=== PATIENT | female | born 1995 | race Caucasian/White ===

== ENCOUNTER 2019-03-07 22:18 | Emergency (ER) | payer MEDICAID, SELFPAY ==
[2019-03-07 22:15] VITALS: BP 116/77; PULSE 94; RESP 18; TEMP 36.8; O2SAT 99; BMI 27.1
--- NOTE | 2019-03-07 22:19 | ED_ITS ---
Entered by oRhini Flores, acting as scribe for Jaelyn Berger MD HPI - Abdominal Pain General: Chief Complaint: Abdominal Pain Stated Complaint: labor Source: patient and EMS Mode of arrival: EMS Limitations: no limitations History of Present Illness: HPI narrative: 24 y/o female presents to the ED with complaint of abd pain and cramping. Pt states she is 19 weeks . She was seen in [facility] earlier today and was sent here. MD elicited complaint: abdominal pain Onset (ago): hour(s) Quality: cramping Associated Symptoms: Reports nausea; Denies chills and fever(s) Related Data: Patient : Yes (19 weeks) Review of Systems Const: Denies: fever or chills Eyes: Denies: change in vision ENMT: Denies: throat pain or mouth pain Card: Denies: chest pain Resp: Denies: shortness of breath GI: Reports: abdominal pain and nausea : Denies: difficulty urinating Musc: Denies: back pain or joint pain Skin/Breast: Denies: rash Neuro: Denies: headache or behavioral changes Psych: Denies: depression Endo: Denies: excessive urination Rowdy/Lymph: Denies: easy bruising All/Imm: Denies: hives Physical Exam Const: COMMON NORMALS: no apparent distress, oriented x3 and healthy appearing HENMT: COMMON NORMALS: normocephalic and external nose normal HEAD & SCALP: normocephalic NOSE: external nose normal Eye: COMMON NORMALS: PERRL PUPIL: Yes PERRL Neck/C-Spine: COMMON NORMALS: full ROM and no lymphadenopathy Chest: COMMONS NORMALS: inspection of chest normal Resp: COMMON NORMALS: normal respiratory effort, no use of accessory muscles and clear to auscultation bilaterally AUSCULTATION: clear to auscultation bilaterally Cardio: COMMON NORMALS: regular rate and regular rhythm RATE: regular rate RHYTHM: regular rhythm GI: COMMON NORMALS: normal to inspection, nondistended, normoactive bowel sounds, soft to palpation, non-tender and no masses PALPATION: Yes soft Back/Pelvis: THORACIC SPINE/UPPER BACK: Yes normal to inspection Extremity: COMMON NORMALS: normal to inspection, full ROM and normal capillary refill Neuro: COMMON NORMALS: oriented x3 Psych: COMMON NORMALS: mental status grossly normal and cooperative Skin: COMMON NORMALS: no rashes or lesions noted GENERAL SKIN EXAM: no rashes or lesions noted Course Vital Signs: Vital signs: Vital Signs Temperature 98.2 F 03/07/19 22:15 Pulse Rate 94 03/07/19 22:15 Respiratory Rate 18 03/07/19 22:15 Blood Pressure 116/77 03/07/19 22:15 Pulse Oximetry 99 03/07/19 22:15 MDM - Abdominal Pain MDM Narrative: Medical decision making narrative: Patient presents here with abdominal pain and . This is likely round ligament pain. Her lab work from [facility] was negative and ultrasound here showed an IUP with heart rate of 140s. Patient is well-appearing here and is stable for discharge. She is to follow-up with her OB in 2 to 4 days and return if worsening. Discharge Plan Discharge Patient Disposition: Home, Self-Care Clinical Impression: Abdominal pain affecting Condition: Stable Prescriptions: No Action Paxil 30 mg Tablet 30 mg PO DAILY RF: 0 Multi Vitamin PO DAILY RF: 0 Discharge Orders: Discharge Order (Routine); Ordered 03/07/19 Ordered By: Jaelyn Berger Referrals: Estuardo Beth MD [Primary Care Provider] - Discharge Diet: Advance as tolerated Discharge Activity: Resume usual activity Patient Instructions: (ED), Abdominal Pain (ED) Discharge Date/Time: 03/07/19 22:47 Coding Level of Care Code ED Carpet Floor Layer Apprentice for Chg Fwd Exam Problem Focused The documentation recorded by the Mark lara Ashley, accurately reflects the service I personally performed and the decisions made by md, Jaelyn Berger MD
[2019-03-07] MEDS: acetaminophen 325 mg Tablet 650 MG PO (22:35)
[2019-03-07 22:48] VITALS: BP 120/74; PULSE 103; RESP 16; O2SAT 99
[2019-04-29 18:35] VITALS: BP 108/71; PULSE 92
== END 2019-03-07 22:47 | disposition home or self-care (01) ==
LOC: ER 22:46
PROVIDERS: Emergency Provider Emergency Medicine; Family Provider Family Medicine; PCP Family Medicine
DX: O26.892 Other specified pregnancy related conditions, second trimester (principal); R10.9 Unspecified abdominal pain; Z3A.19 19 weeks gestation of pregnancy
CPT/HCPCS: 99211; 99281

== ENCOUNTER 2019-03-11 13:24 | Outpatient (CLI) | payer MEDICAID, SELFPAY ==
--- NOTE | 2019-03-11 | US_ITS ---
WS: [id number] OBSTETRICAL ULTRASOUND COMPLETE HISTORY: MULTIGRAVIDA IN SECOND TRIMESTER COMPARISON: 12/25/2018 and 12/05/2018 Single intrauterine gestation in transverse presentation. head on maternal LEFT. Cervix is Closed and normal length. Cervical length is 5.7 cm. Normal amount of amniotic fluid surrounds the fetus. Placenta: Anterior, no previa or abruption. Placenta is low-lying. Placenta ends 1.9 cm internal cer vical os. Placenta grade 1 Heart: 146 BPM. Four chambers are identified. Anatomy: Intracranial structures and spine are normal. kidneys, stomach and urinary bladd er are unremarkable. Abdominal wall, three-vessel cord and cord insertion site are normal. 4 extremities are present. profile: Unremarkable. Gender: Female. measurements: BPD = 4.5 cm = 19w5d HC = 16.8 cm = 19w3d AC = 14.8 cm = 20w0d FL = 3.4 cm = 20w5d EFW: 341 g., Measurements are internally concordant. AGA by ultrasound: 20 weeks 0 days JAIDEN by ultrasound: 07/29/2019 US/US OB >= 14 weeks fetus [id number] IMPRESSION: 1. Single intrauterine gestation of 20 weeks 0 day with an EDC of 07/29/2019 whi ch correlates well with the first trimester EDC. 2. Unremarkable screening survey of anatomy. 3. Anterior low-lying placenta. Recommend follow-up during late second cate lara
== END 2019-03-11 13:25 | disposition home or self-care (01) ==
LOC: RADOUTREAD 03-12 07:04
PROVIDERS: Family Provider Family Medicine; PCP Family Medicine; Visit Provider Family Medicine
DX: Z34.82 Encounter for supervision of other normal pregnancy, second trimester (principal)

== ENCOUNTER 2019-04-11 11:55 | Outpatient (CLI) | payer MEDICAID, SELFPAY ==
[2019-04-11 12:05] VITALS: BP 116/71; PULSE 98; RESP 16; TEMP 36.8
[2019-04-11 12:46] VITALS: BP 103/65; PULSE 98
[2019-04-11 12:48] LABS: Bilirubin Urine Neg (NEGATIVE); Blood Urine Neg (Negative); Glucose Urine UA Norm (Normal); Ketones Urine Negative (Negative); Leukocyte Esterase Urine Negative (Negative); Nitrate Urine Negative (Negative); Protein Urine Neg (Negative); Specific Gravity, Urine 1.015 (1.005-1.030); Urine Appearance SL Hazy (CLEAR); Urine Color Yellow (Yellow); Urobilinogen Urine Norm (Negative); pH Urine 7 (5-7)
[2019-04-11 12:53] LABS: Add Urine Culture? No; Amorphous Sediment Urine 2+; Bacteria Urine 1+; RBC Urine 0-4 /hpf (0-2); Squamous Epithelial Cell Urine 0-4 (0-5); WBC Urine 0-4 /hpf (0-5)
[2019-04-11 13:15] VITALS: BMI 27.9
== END 2019-04-11 13:15 | disposition home or self-care (01) ==
LOC: OPOB 12:01 → OBGYN 13:08 → OPOB 04-12 07:47
PROVIDERS: Family Provider Family Medicine; PCP Family Medicine; Visit Provider Family Medicine
DX: O26.899 Other specified pregnancy related conditions, unspecified trimester (principal); Z3A.00 Weeks of gestation of pregnancy not specified; R10.9 Unspecified abdominal pain
CPT/HCPCS: 81001; 99211

== ENCOUNTER 2019-04-29 17:45 | Outpatient (CLI) | payer MEDICAID, SELFPAY ==
[2019-04-29 18:00] VITALS: BP 119/62; PULSE 87; RESP 18
[2019-04-29 18:52] VITALS: BMI 28.6
[2019-04-29 19:05] VITALS: BP 97/48; PULSE 83
[2019-04-29 19:18] LABS: Bilirubin Urine Neg (NEGATIVE); Blood Urine 2+ (Negative); Glucose Urine UA Norm (Normal); Ketones Urine Negative (Negative); Leukocyte Esterase Urine Negative (Negative); Nitrate Urine Negative (Negative); Protein Urine Neg (Negative); Specific Gravity, Urine 1.005 (1.005-1.030); Urine Appearance Clear (CLEAR); Urine Color Yellow (Yellow); Urobilinogen Urine Norm (Negative); pH Urine 6.5 (5-7)
[2019-04-29 19:35] VITALS: BP 104/76; PULSE 87
[2019-04-29 19:49] VITALS: BP 104/76; PULSE 87; RESP 16; TEMP 36.7
[2019-04-29 19:50] VITALS: PULSE 87; RESP 16; TEMP 36.7
== END 2019-04-29 20:08 | disposition home or self-care (01) ==
LOC: OPOB 18:45 → OBGYN 19:54 → OPOB 04-30 08:04
PROVIDERS: Absent Provider Family Medicine; Family Provider Family Medicine; PCP Family Medicine; Visit Provider Family Medicine
DX: O26.899 Other specified pregnancy related conditions, unspecified trimester (principal); Z3A.00 Weeks of gestation of pregnancy not specified; R52 Pain, unspecified
CPT/HCPCS: 81001; 87086; 99211

== ENCOUNTER 2019-04-30 10:09 | Outpatient (CLI) | payer MEDICAID, SELFPAY ==
--- NOTE | 2019-04-30 | US_ITS ---
WS: [id number] LIMITED OBSTETRICAL ULTRASOUND HISTORY: PELVIC PAIN DURING COMPARISON: 03/11/2019, 12/25/2018 and 12/05/2018 Presentation: Breech Cervix: Closed and normal length. Placenta: Anterior, no previa or abruption. Grade: 1 HEART: FHR of 166 BPM. measurements: BPD = 6.7 cm = 27w0d HC = 24.9 cm = 27w0d AC = 22.7 cm = 27w1d FL = 5.1 cm = 27w2d VARGAS: 14.8 cm EFW: 1032 g; 53rd %. AGA by ultrasound: 27 weeks 1 day JAIDEN by ultrasound: 07/29/2019 Appropriate growth of fetus since the first trimester ultrasound. US/[place] [id number] IMPRESSION: 1. Single intrauterine gestation of 27 weeks 1 day with an EDC of 07/29/2019. Ap propriate growth since the first trimester. 2. Normal amniotic fluid.
--- NOTE | 2019-04-30 | US_ITS ---
WS: [id number] RENAL ULTRASOUND HISTORY: HEMATURIA COMPARISON: None available. TECHNIQUE: 2-D and color Doppler imaging of the kidney submitted. Right kidney: 11.7 cm x 5.4 cm x 5.9 cm. Normal echogenicity with no hydronephrosis or mass. Left kidney: 12.6 cm x 4.6 cm x 4.9 cm. Normal echogenicity with no hydronephrosis or mass. Aorta: Normal. Urinary Bladder: Normal distention. US/US renal BI* [id number] IMPRESSION: Normal renal ultrasound.
== END 2019-04-30 10:10 | disposition home or self-care (01) ==
LOC: RADOUTREAD 13:02
PROVIDERS: Family Provider Family Medicine; PCP Family Medicine; Visit Provider Family Medicine
DX: Z01.89 Encounter for other specified special examinations (principal)

== ENCOUNTER 2019-05-07 08:15 | Emergency (ER) | payer MEDICAID, SELFPAY ==
[2019-05-07 08:20] VITALS: BP 106/68; PULSE 116; RESP 16; TEMP 36.9; O2SAT 98; BMI 28.8
--- NOTE | 2019-05-07 08:31 | ED_ITS ---
HPI - General Adult General: Chief complaint: Fever Stated complaint: FEVER, N/V Time Seen by Provider: 05/07/19 08:16 History of Present Illness: HPI narrative: Patient with flulike symptoms since yesterday daughter was diagnosed with flu on Monday patient has dry cough body aches headache fever. Patient is 28 weeks complaint: Flu Onset (ago): day(s) Associated symptoms: Reports cough, fevers/chills and nausea; Deny chest pain, dyspnea, headache(s) or rash Review of Systems Const: Reports: fever, chills and body aches Eyes: Denies: change in vision or blurry vision ENMT: Denies: throat pain or nasal congestion Card: Denies: chest pain or shortness of breath on exertion Resp: Reports: non-productive cough; Denies: shortness of breath or productive cough GI: Reports: nausea Musc: Denies: extremity pain Skin/Breast: Denies: rash Neuro: Denies: headache Psych: Denies: anxiety or depression Rowdy/Lymph: Denies: easy bruising PFSH ED PFSH: Social History Smoking and tobacco status: never smoked Physical Exam Const: COMMON NORMALS: no apparent distress, average body habitus and oriented x3 HENMT: COMMON NORMALS: normocephalic HEAD & SCALP: normal to inspection and normocephalic FACE & SINUS: normal facial exam Eye: COMMON NORMALS: conjunctivae normal GENERAL EYE: normal appearance of both eyes CONJUNCTIVA: Yes conjunctivae normal Neck/C-Spine: COMMON NORMALS: no JVD Chest: COMMONS NORMALS: inspection of chest normal Resp: COMMON NORMALS: normal respiratory effort and clear to auscultation bilaterally AUSCULTATION: clear to auscultation bilaterally Cardio: COMMON NORMALS: no JVD, regular rate and regular rhythm RATE: regular rate RHYTHM: regular rhythm GI: COMMON NORMALS: normal to inspection, nondistended, normoactive bowel sounds Extremity: COMMON NORMALS: normal to inspection and full ROM Neuro: COMMON NORMALS: oriented x3 Course Vital Signs: Vital signs: Vital Signs Temperature 98.5 F 05/07/19 08:20 Pulse Rate 116 H 05/07/19 08:20 Respiratory Rate 16 05/07/19 08:20 Blood Pressure 106/68 05/07/19 08:20 Pulse Oximetry 98 05/07/19 08:20 MDM - General Adult Lab Data: Labs: Lab Results 05/07/19 Range/Units 08:55 Influenza Type A A g Negative (Negative) POC Influenza B Ag Negative (Negative) Discharge Plan Discharge Patient Disposition: Home, Self-Care Clinical Impression: Influenza Condition: Stable Prescriptions: New Tamiflu 75 mg capsule 75 mg PO BID 5 Days Qty: 10 RF: 0 No Action Paxil 30 mg Tablet 30 mg PO DAILY RF: 0 Multi Vitamin PO DAILY RF: 0 Discharge Orders: Discharge Order (Routine); Ordered 05/07/19 Ordered By: Daniel Uriostegui Referrals: Estuardo Beth MD [Primary Care Provider] - Discharge Diet: Advance as tolerated and Usual diet Discharge Activity: Increase activity as tolerated Patient Instructions: Influenza (ED) Activity Restrictions/Additional Instructions: Follow-up with medical provider as directed. Take medications as prescribed. Return to the ER or your medical provider if condition worsens. Please read and understand discharge instructions. If any questions ask please. Drink plenty of fluids. Rest. Chicken noodle soup in diet. Stand Alone Forms: Work/School Release Coding Level of Care Code ED Telegraph Inspector for Vivg Fwd Exam Comprehensive
[2019-05-07] MEDS: ketorolac 60 mg/2 mL INJ IM (08:43)
[2019-05-07 09:26] LABS: Influenza A by IFA Negative (Negative); Influenza B by IFA Negative (Negative)
[2019-05-07 09:49] VITALS: BP 103/61; PULSE 107; RESP 18; O2SAT 98
== END 2019-05-07 09:55 | disposition home or self-care (01) ==
PROVIDERS: Emergency Provider Nurse Practitioner Family; Family Provider Family Medicine; PCP Family Medicine
DX: O98.513 Other viral diseases complicating pregnancy, third trimester (principal); J11.1 Influenza due to unidentified influenza virus with other respiratory manifestations; Z3A.28 28 weeks gestation of pregnancy
CPT/HCPCS: 12345; 87804; 96372; 99281; 99283; J1885

== ENCOUNTER 2019-05-22 01:25 | Outpatient (CLI) | payer MEDICAID, SELFPAY ==
[2019-05-22] VITALS (29 sets, daily range): BP systolic 0–117; BP diastolic 0–72; PULSE 82–109; TEMP 36.9; O2SAT 96–100; BMI 28.6
[2019-05-22] MEDS: lactated ringers 1,000 ML 999 ML IV ×2 (02:57→03:51)
[2019-05-22] MEDS: acetaminophen 500 mg Tablet 1000 MG PO (02:59)
[2019-05-22 03:05] LABS: Bilirubin Urine Neg (NEGATIVE); Blood Urine Trace (Negative); Glucose Urine UA Norm (Normal); Ketones Urine Negative (Negative); Leukocyte Esterase Urine Negative (Negative); Nitrate Urine Negative (Negative); Protein Urine Neg (Negative); Urine Appearance Clear (CLEAR); Urine Color Yellow (Yellow); Urobilinogen Urine 4 mg/dL (Negative); pH Urine 6 (5-7)
[2019-05-22 03:07] LABS: Bacteria Urine 1+; Calcium Oxalate Crystals Urine >100 /hpf; Mucus Urine 1+; Squamous Epithelial Cell Urine 55-80 (0-5)
[2019-05-22 03:08] LABS: Add Urine Culture? No
[2019-05-22] MEDS: terbutaline 1 mg/mL INJ 0.25 MG SUBCUT (03:34)
== END 2019-05-22 05:07 | disposition home or self-care (01) ==
LOC: OPOB 01:27 → OBGYN 01:43 → OPOB 14:40
PROVIDERS: Family Provider Family Medicine; PCP Family Medicine; Visit Provider Family Medicine
DX: O26.899 Other specified pregnancy related conditions, unspecified trimester (principal); Z3A.00 Weeks of gestation of pregnancy not specified; R10.9 Unspecified abdominal pain
CPT/HCPCS: 59025; 81001; 96372; 99211; J3105

== ENCOUNTER 2019-06-06 16:07 | Outpatient (CLI) | payer MEDICAID, SELFPAY ==
[2019-06-06 16:27] VITALS: BP 115/74; PULSE 93; RESP 17
[2019-06-06 16:41] VITALS: TEMP 36.7
[2019-06-06 16:58] VITALS: BP 108/72; PULSE 90
[2019-06-06 17:16] VITALS: BMI 29.3
== END 2019-06-06 17:15 | disposition home or self-care (01) ==
LOC: OPOB 16:20 → OBGYN 16:21
PROVIDERS: Family Provider Family Medicine; PCP Family Medicine; Visit Provider Family Medicine
DX: O26.899 Other specified pregnancy related conditions, unspecified trimester (principal); Z3A.00 Weeks of gestation of pregnancy not specified; R10.9 Unspecified abdominal pain
CPT/HCPCS: 59025; 99211

== ENCOUNTER 2019-06-08 16:21 | Outpatient (CLI) | payer MEDICAID, SELFPAY ==
[2019-06-08 16:44] VITALS: BP 124/70; PULSE 93
[2019-06-08 16:54] VITALS: BMI 29.2
[2019-06-08 16:55] VITALS: TEMP 37.1
[2019-06-08 18:22] LABS: Bacteria Urine TRACE; Bilirubin Urine Neg (NEGATIVE); Blood Urine Neg (Negative); Glucose Urine UA Norm (Normal); Ketones Urine Negative (Negative); Leukocyte Esterase Urine Negative (Negative); Nitrate Urine Negative (Negative); Protein Urine Neg (Negative); RBC Urine RARE /hpf (0-2); Squamous Epithelial Cell Urine RARE (0-5); Urine Appearance Clear (CLEAR); Urine Color Yellow (Yellow); Urobilinogen Urine Norm (Negative); WBC Urine RARE /hpf (0-5); pH Urine 7 (5-7)
[2019-06-08 18:37] VITALS: BP 100/62; PULSE 88
[2019-06-08 18:55] VITALS: BP 100/62; PULSE 88; RESP 17
== END 2019-06-08 18:55 | disposition home or self-care (01) ==
LOC: OPOB 16:25 → OBGYN 18:46
PROVIDERS: Family Provider Family Medicine; PCP Family Medicine; Visit Provider Family Medicine
DX: O26.899 Other specified pregnancy related conditions, unspecified trimester (principal); Z3A.00 Weeks of gestation of pregnancy not specified; R10.9 Unspecified abdominal pain
CPT/HCPCS: 59025; 81001; 99211

== ENCOUNTER 2019-06-25 13:10 | Outpatient (CLI) | payer MEDICAID, SELFPAY ==
[2019-06-25 13:15] VITALS: BMI 28.6
[2019-06-25 13:40] VITALS: BP 116/76; PULSE 124; TEMP 36.9
[2019-06-25 15:00] VITALS: BP 119/69; PULSE 88
== END 2019-06-25 15:13 | disposition home or self-care (01) ==
LOC: OPOB 13:13 → OBGYN 13:14
PROVIDERS: Family Provider Family Medicine; PCP Family Medicine; Visit Provider Obstetrics & Gynecology
DX: O26.899 Other specified pregnancy related conditions, unspecified trimester (principal); Z3A.00 Weeks of gestation of pregnancy not specified; R10.30 Lower abdominal pain, unspecified
CPT/HCPCS: 59025; 99211

== ENCOUNTER 2019-07-12 14:25 | Outpatient (CLI) | payer MEDICAID, SELFPAY ==
[2019-07-12] VITALS (9 sets, daily range): BP systolic 0–107; BP diastolic 0–73; PULSE 84–100; TEMP 37.1; BMI 29.3
[2019-07-12] MEDS: sodium chloride 0.9% 1,000 ML 999 ML IV ×2 (15:24→16:30)
[2019-07-12 16:03] LABS: Urine Appearance Clear (CLEAR); Urine Color Yellow (Yellow)
[2019-07-12 16:04] LABS: Add Urine Culture? No; Bacteria Urine TRACE; Bilirubin Urine Neg (NEGATIVE); Blood Urine 2+ (Negative); Glucose Urine UA Norm (Normal); Ketones Urine Negative (Negative); Leukocyte Esterase Urine Negative (Negative); Mucus Urine 3+; Nitrate Urine Negative (Negative); Protein Urine Neg (Negative); RBC Urine 0-4 /hpf (0-2); Specific Gravity, Urine 1.025 (1.005-1.030); Squamous Epithelial Cell Urine 0-4 (0-5); Urobilinogen Urine Norm (Negative); pH Urine 5 (5-7)
[2019-07-12] MEDS: ondansetron 2 mg/ML SDV 2 mL 4 MG IVP (16:08)
== END 2019-07-12 17:52 | disposition home or self-care (01) ==
LOC: OPOB 14:27 → OBGYN 17:42
PROVIDERS: PCP Family Medicine; Visit Provider Family Medicine
DX: O26.899 Other specified pregnancy related conditions, unspecified trimester (principal); Z3A.00 Weeks of gestation of pregnancy not specified; R10.9 Unspecified abdominal pain
CPT/HCPCS: 59025; 81001; 83986; 96375; 99211; J2405; J7030

== ENCOUNTER → 2019-07-19 08:02 | Outpatient (BNVA) | payer MEDICAID, SELFPAY | PROVIDERS: PCP Family Medicine; Visit Provider Counselor Mental Health | DX: F33.1 Major depressive disorder, recurrent, moderate (principal); F43.23 Adjustment disorder with mixed anxiety and depressed mood; F43.12 Post-traumatic stress disorder, chronic | CPT/HCPCS: 90834 ==

== ENCOUNTER 2019-07-24 12:30 | Inpatient (IN) | payer MEDICAID, SELFPAY ==
[2019-07-24] VITALS (29 sets, daily range): BP systolic 0–127; BP diastolic 0–78; PULSE 81–112; RESP 17–18; TEMP 36.6–37.1; BMI 34.5
[2019-07-24 07:35] LABS: Basophils % 0.3 %; Eosinophils # 0.1 10^3/uL (0.0-0.8); Eosinophils % 0.9 %; Hematocrit 36.4 % (37.0-47.0); Hemoglobin 11.7 g/dL (11.5-15.3); Lymphocytes # 2.1 10^3/uL (0.8-4.8); Lymphocytes % 22.3 %; Mean Corpuscular HGB Conc 32.1 g/dL (30.0-36.0); Mean Corpuscular Hemoglobin 29.3 pg (28.0-34.0); Mean Corpuscular Volume 91.2 fL (81-99); Mean Platelet Volume 10.5 fL (7.4-10.4); Monocytes # 0.8 10^3/uL (0.2-0.9); Neutrophils # 6.5 10^3/uL (1.8-7.7); Neutrophils % 67.6 %; Nucleated Red Blood Cells % 0 %; Platelet Count 256 10^3/cmm (130-400); Red Blood Count 3.99 10^6/uL (4.1-5.3); Red Cell Distribution Width 13.3 % (12.1-15.1); White Blood Count 9.6 10^3/uL (4.0-10.0)
[2019-07-24] MEDS: miSOPROStol 100 mcg tablet 25 MCG VAGINAL ×3 (08:05→20:11)
--- NOTE | 2019-07-24 17:25 | P.HP_ITS ---
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 She has had a very uncomfortable and at 39 weeks and 1 day gestation the decision was made to attempt misoprostel cervical ripening for induction purposes. Benefits and risks were discussed with the patient prior to admission. She was placed in the hospital earlier this morning and given misoprostol 25 mcg. She began having contractions every 1 to 2 minutes apart and making slow cervical change. When the contractions started spreading apart she was given a second dose of misoprostol approximately 2 hours prior to this dictation. She has had no significant problems through her course except significant discomfort and some vaginitis and urinary tract infections. She did discuss with this physician and Dr. Haas that she requests a tubal ligation. Present Details : 5 Para: 2 Review of Systems Narrative: Patient is extremely uncomfortable and beginning to feel her contractions at this time. Const: Reports: change in sleep pattern; Denies: fever(s), chills or change in appetite Card: Denies: chest pain, palpitations, irregular heart rhythm or syncope Resp: Denies: dyspnea or productive cough GI: Reports: abdominal pain, nausea and heartburn; Denies: vomiting, diarrhea or constipation : Reports: amenorrhea Musc: Reports: back pain Neuro: Denies: headache(s) or numbness in extremities Psych: Reports: anxiety; Denies: depression Medications/Allergies Home Medications Medication Instructions Recorded Confirmed Last Taken Type [id number] fumarate-FA 1 tab PO DAILY 06/08/19 07/12/19 1 Day Ago History [] ~07/23/19 omeprazole 20 mg PO DAILY 06/08/19 07/12/19 1 Day Ago History ~07/23/19 paroxetine HCl 40 mg PO DAILY 06/08/19 07/12/19 1 Day Ago History ~07/23/19 Allergies Allergy/AdvReac Type Severity Reaction Status Date / Time Penicillins Allergy ALGY-Rash Verified 05/22/19 03:58 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 Const: COMMON NORMALS: no acute distress and well nourished GENERAL APPEARANCE: cooperative; not comfortable ORIENTATION/CONSCIOUSNESS: Yes awake Neck/C-Spine: COMMON NORMALS: full ROM and no lymphadenopathy GENERAL: Yes normal visual inspection and Yes trachea midline Resp: COMMON NORMALS: normal respiratory effort, No retractions, No use of accessory muscles and clear to auscultation bilaterally Cardio: COMMON NORMALS: no JVD, regular rate and regular rhythm GI: COMMON NORMALS: Soft to palpation INSPECTION: Yes gravid abdomen PALPATION: Yes Firmness to palpation present (GI) : COMMON NORMALS: Yes no CVA tenderness MANUAL OB EXAM: dilated 2 cm, effaced 50% and station -2 UTERUS PALPATION: Yes Other OB uterine findings AMNIOTIC FLUID: no fluid Back/Pelvis: COMMON NORMALS: no CVA tenderness LUMBAR SPINE/LOWER BACK: Yes normal to inspection and Yes paraspinal muscle tenderness Lumbar paraspinal muscle tenderness: bilateral Extremity: COMMON NORMALS: normal to inspection, full ROM, capillary refill normal and no clubbing, cyanosis or edema Neuro: COMMON NORMALS: patient oriented x3, CN's II-XII intact bilaterally, moves all extremities, no focal motor deficits and no sensory deficits noted Psych: COMMON NORMALS: mental status grossly normal, Normal thought process present, cooperative and normal affect Skin: COMMON NORMALS: no rashes or lesions noted Data : 07/24/19 06:43 A&P Assessment and plan (1) Term : Patient is term and because she has had so much problems throughout this a decision was made to proceed with cervical ripening for induction at this time. She has discussed with this physician and Dr. Haas her desire for tubal ligation. Status: Acute (2) Discomfort during : If he can discomfort and has 4 the last few months of . Secondary to this a decision was made after she reached 39 weeks gestation to proceed with cervical ripening for induction. Status: Acute Attestations Medical Necessity Statement*: This patient has a term with significant discomfort and requires inpatient hospitalization for induction and labor delivery process. I expect a greater than 2 midnight hospital stay. Time Spent in Patient Care: Greater than 35 minutes Coding Level of Care Code Acute Clearing Hand for Chg Shadia Diagnoses Term Z34.90 Discomfort during
[2019-07-25] VITALS (104 sets, daily range): BP systolic 0–140; BP diastolic 0–84; PULSE 61–122; RESP 16–18; TEMP 36.6–37.1; O2SAT 97–99
--- NOTE | 2019-07-25 03:05 | ANES.PREANE2 ---
Pre-Anesthetic Assessment Pre-Anesthetic Assessment: Height/Weight: Height 1.52 m Weight 80.286 kg Temp Pulse Resp BP Pulse Ox 98.8 F 88 18 119/59 98 07/24/19 16:30 07/25/19 03:04 07/24/19 16:30 07/25/19 03:04 07/25/19 03:00 Preop Diagnosis: iup Proposed Procedure: lumbar labor epidural Was Beta Adolfo taken within 24 hours: N/A Last intake: 0400 Social: Social History: No alcohol and No tobacco Exam: Pre-Anes Outpt Exam: alert, oriented x 3, clear to auscultation bilaterally and regular rate & rhythm Airway: Submandibular: WNL Cervical ROM: WNL MP: 2 Dentition: Full History/ROS: No significant history except as noted and No significant complaints Pulmonary: Pulmonary: None reported CV/HEM: CV/HEM: None reported : : None reported Hepatic: Hepatic: None reported GI: GI: GERD Metabolic: Metabolic: None reported Musc/skel: Musc/skel: None reported Neuropsych: Neuropsych: None reported Anesthetic Plan: ASA status: 2 Anesthesia: Regional (specify below) (epidural) PFSH Anesthesia PFSH: Social History Smoking and tobacco status: never smoked Female Reproductive History: : 5 Data Anesthesia CBC & Chem 7: 07/24/19 06:43 Other Labs: Laboratory Results - last 48 hr 07/24/19 07/24/19 06:43 06:43 WBC 9.6 RBC 3.99 L Hgb 11.7 Hct 36.4 L MCV 91.2 MCH 29.3 MCHC 32.1 RDW 13.3 Plt Count 256 MPV 10.5 H Neut % (Auto) 67.6 Lymph % (Auto) 22.3 Preble % (Auto) 8.0 Eos % (Auto) 0.9 Baso % (Auto) 0.3 Neut # (Auto) 6.5 Lymph # (Auto) 2.1 Preble # (Auto) 0.8 Eos # (Auto) 0.1 Baso # (Auto) 0.0 Nucleated RBC % (auto) 0 Nucleated RBCs # 0.0 Blood Type A Positive Rho(D) Type Positive Antibody Screen Negative Cardiac Studies: No Data to Display Anesthesia Procedures Date of Procedure: 07/25/19 Epidural: Time Out Performed: Yes Consents Signed: Procedure Consent Consent: from patient Lumbar Level: L3-L4 Epidural position: sitting Epidural procedure: sterile prep of area, 1% lidocaine to numb the area (5), 18 g needle, negative for paresthesia passed, neg for paresthesia, test dose given, 1.5% xylocaine 1:200k epi (5), 0.2% Ropivacaine bolus ml (7), placed PCEA (5cc q10min x 3), no systemic response, sterile dressing applied, L.U.D. no apparent complications and 0.2% Ropiavacaine @ mls/hr (11) Additional Comments: Called to OB for epidural placement, pt evaluated and assessed for placement and explained procedure. Labs reviewed. Pt agrees to proceed. placed to 5cm in space and tolerated well. Bolused over 7 min and VSS throughout per nursing chart. Last BP 111/63. Pain much improved.
[2019-07-25] MEDS: ondansetron 2 mg/ML SDV 2 mL 4 MG IVP ×2 (03:31→07:53)
[2019-07-25] MEDS: dextrose 5%-lactated ringers 1,000 ML 125 ML IV ×2 (03:31→08:20)
[2019-07-25] MEDS: oxytocin 30 UNIT/500 ML BAG IV (09:48)
--- NOTE | 2019-07-25 13:08 | P.PCNOB_ITS ---
Delivery Note: Date of delivery: July 25, 2019 this 24-year-old 5 now para 3 female was admitted yesterday morning at 39 weeks 1 days gestation for misoprostol cervical ripening. Decision was made to proceed with cervical ripening secondary to significant discomfort which has been going on for several weeks. She was given misoprostol 25 mcg x 2 doses yesterday and then followed by a third last night. She did make some cervical change. She was given epidural anesthesia at 4 cm dilatation and underwent artificial rupture membranes. Pitocin augmentation was added when she was not making much cervical change and she began making cervical change and delivered by spontaneous vaginal delivery a healthy, viable female . Upon delivery of the head the mouth and nose were suctioned at the perineum followed by delivery of the left shoulder than the right shoulder. There was no nuchal cord. The was placed on mother's abdomen after suctioning and after approximately 1-1/2 minutes the umbilical cord was clamped and cut by the infant's father. The umbilical cord had 3 blood vessels. Apgars were 8 and 9 at 1 and 5 minutes respectively. The infant was delivered at 12:36 PM. The placenta delivered spontaneously at 1241. She did have a mild first-degree perineal laceration which required a layered surgical closure using Vicryl suture. The infant weighed 8 pounds 1 ounce and estimated blood loss was approximately 98 mL. Pre-Delivery Course: Patient was followed throughout her course by this physician. There were no significant problems or concerns. Maternal blood type was A+ with antibody screen negative. Hepatitis B, hepatitis C, RPR and HIV were negative. Rubella was immune and group B strep was negative. The patient had significant discomfort through the last several weeks of her . Delivery: Spontaneous vaginal delivery. A&P Assessment and plan (1) Term : Patient has done very well with labor and delivery process. She was given epidural anesthesia and did extremely well. She will be followed for routine postdelivery care. We will continue her usual medications. Status: Acute (2) Discomfort during : Infant has been delivered and this has been resolved. Status: Acute Coding Level of Care Code Acute Precipitation Equipment Tender for Maksim Fwtacos Diagnoses Term Z34.90 Discomfort during
--- NOTE | 2019-07-25 15:10 | PC.NURSE ---
Epidural catheter removed, tip intact, site covered with bandaid. Pt tolerated well. Pt then up to bathroom, voided, odin care performed, pad changed.
[2019-07-25] MEDS: benzocaine-menthol 78 gm Canister 1 SPRAY TOPICAL (15:29)
[2019-07-25] MEDS: lanolin oint 7 gm 1 APPLIC TOPICAL (15:29)
[2019-07-25] MEDS: HYDROcodone-acetaminophen 5-325 mg Tablet PO (19:32)
[2019-07-25] MEDS: docusate sodium 100 mg Capsule PO (19:32)
[2019-07-26] MEDS: HYDROcodone-acetaminophen 5-325 mg Tablet PO ×2 (01:27→11:05)
[2019-07-26 02:52] LABS: Hemoglobin 10.4 g/dL (11.5-15.3); Mean Corpuscular HGB Conc 32.5 g/dL (30.0-36.0); Mean Corpuscular Hemoglobin 29.7 pg (28.0-34.0); Mean Corpuscular Volume 91.4 fL (81-99); Mean Platelet Volume 10.2 fL (7.4-10.4); Platelet Count 248 10^3/cmm (130-400); Red Cell Distribution Width 13.3 % (12.1-15.1); White Blood Count 10.5 10^3/uL (4.0-10.0)
[2019-07-26 03:34] VITALS: BP 135/84; PULSE 70; RESP 16; TEMP 36.7; O2SAT 98
[2019-07-26 06:22] VITALS: BP 117/75; PULSE 67; RESP 15; TEMP 36.7; O2SAT 97
--- NOTE | 2019-07-26 07:41 | PM.OBGYDC ---
Discharge Providers POLICY ADVISOR Date of Admission: 07/24/19 12:30 Date of Discharge: 07/26/19 Attending Provider at Admission: Estuardo Beth MD Attending Provider at Discharge: Estuardo Beth MD Primary Care Provider: Estuardo Beth MD Diagnoses at Discharge Discharge Diagnosis (1) Term : Status: Acute Problem details: Patient is doing well and ambulating well. She does complain of significant pain and discomfort but otherwise there are no concerns. She is felt to be stable for discharge this afternoon. (2) Discomfort during : Status: Acute Problem details: Patient continues to have some discomfort after vaginal delivery but overall is doing well. Reason for Visit Reason for Visit: Reason For Visit: INDUCTION Hospital Course Hospital Course: Patient had a lengthy course prior to delivery. However, she is doing well after delivery except for complaints of discomfort. She is felt to be stable for discharge. Information Peripartum Data: Infant Delivery Method: Vaginal Physical Exam Const: COMMON NORMALS: no acute distress and healthy appearing Resp: COMMON NORMALS: normal respiratory effort, No retractions, No use of accessory muscles and clear to auscultation bilaterally AUSCULTATION: clear to auscultation bilaterally Cardio: COMMON NORMALS: regular rate, regular rhythm and No murmurs present (Cardio) RATE: regular rate RHYTHM: regular rhythm GI: COMMON NORMALS: Normal to inspection, nondistended, normoactive bowel sounds present and Soft to palpation (Fundus is firm.) PALPATION: Yes Soft to palpation (Fundus is firm.) Extremity: COMMON NORMALS: normal to inspection, full ROM and capillary refill normal Neuro: COMMON NORMALS: moves all extremities, no focal motor deficits and no sensory deficits noted Psych: COMMON NORMALS: mental status grossly normal and normal affect Discharge Data Data Completed and Pending: Labs from last 24 hours 07/26/19 02:40 WBC 10.5 H RBC 3.50 L Hgb 10.4 L Hct 32.0 L MCV 91.4 MCH 29.7 MCHC 32.5 RDW 13.3 Plt Count 248 MPV 10.2 Vitals: Last Vital Signs Temp 98.0 F 07/26/19 06:22 Pulse 67 07/26/19 06:22 Resp 15 07/26/19 06:22 BP 117/75 07/26/19 06:22 Pulse Ox 97 07/26/19 06:22 Discharge Plan Discharge Patient Disposition: Home, Self-Care Condition: Stable Prescriptions: New docusate sodium 100 mg Capsule 100 mg PO BID Qty: 60 RF: 2 Dermoplast (with menthol) 20-0.5 % Aerosol 1 spray topical PRN PRN (Reason: Pain) Qty: 180 RF: 1 ibuprofen 800 mg Tablet 800 mg PO TID Qty: 90 RF: 2 Continued 28-800 mg-mcg Tablet 1 tab PO DAILY RF: 0 omeprazole 20 mg Capsule,Delayed Release(Dr/Ec) 20 mg PO DAILY RF: 0 paroxetine HCl 40 mg Tablet 40 mg PO DAILY RF: 0 Discharge Orders: Discharge Order (Routine); Ordered 07/26/19 Ordered By: Estuardo Beth Discharge Attestations POLICY ADVISOR Time Spent in Discharge Care*: less than 30 min Specific Discharge Activities: Specific discharge activities: educating patient, documenting/other paperwork and evaluating patient/reviewing data Status at Discharge: Cognitive status at discharge: cognitively intact, Behavioral status at discharge: cooperative, Functional status at discharge: independent ambulation Overall status at discharge: patient is back to baseline Coding Level of Care Code Acute Board Certified Family Physician for Maksim [place] Diagnoses Term Z34.90 Discomfort during
[2019-07-26] MEDS: PARoxetine 20 mg Tablet 40 MG PO (09:08)
[2019-07-26] MEDS: prenatal vitamin Capsule 1 CAP PO (09:08)
[2019-07-26] MEDS: pantoprazole DR 40 mg Tablet PO (09:08)
[2019-07-26] MEDS: docusate sodium 100 mg Capsule PO (09:08)
[2019-07-26 10:53] VITALS: BP 111/76; PULSE 72; RESP 16; TEMP 36.5; O2SAT 97
== END 2019-07-26 13:40 | disposition home or self-care (01) | DRG 807 ==
PROVIDERS: Admitting Provider Family Medicine; PCP Family Medicine; Visit Provider Family Medicine
DX: O70.0 First degree perineal laceration during delivery (principal); Z37.0 Single live birth; Z3A.39 39 weeks gestation of pregnancy
CPT/HCPCS: 12345; 51702; 59025; 59409; 85025; 85027; 86850; 86900; 96375; G0379; J2405; J2795

== ENCOUNTER → 2019-08-12 08:15 | Outpatient (BNVA) | payer MEDICAID, SELFPAY | PROVIDERS: PCP Family Medicine; Visit Provider Counselor Mental Health | DX: F43.23 Adjustment disorder with mixed anxiety and depressed mood (principal); F43.11 Post-traumatic stress disorder, acute | CPT/HCPCS: 90834 ==

== ENCOUNTER 2019-11-28 12:58 | Emergency (ER) | payer MEDICAID, SELFPAY ==
[2019-11-28 13:19] VITALS: BP 146/102; PULSE 73; RESP 16; TEMP 36.2; O2SAT 99; BMI 27.6
--- NOTE | 2019-11-28 14:31 | CT_ITS ---
WS: [id number] CT scan of the head, 11/28/2019 Clinical Data: headache, peripheral vision loss Comparison: None. DLP: 794.[address] scans at [facility] use at least one of these dose optimization techniques: automat ed exposure control; mA and/or kV adjustment per patient size (includes targeted exams where dose is matched to clinical indication); or iterative reconstruction. Findings: The ventricular system is normal without shift. No recent infarct or hemorrhage is seen. There are no abnormal intracerebral masses. The cerebellum and brainstem are not remarkable. Bony windows of the skull and skull base show no fractures or erosions. The mastoid air cells, physician internist al auditory canals, sella turcica, intraorbital contents, and paranasal sinuses are unremarkable. CT/CT head wo con* [id number] Impression: Negative CT scan of the head
[2019-11-28] MEDS: sodium chloride 0.9% 1,000 ML 999 ML IV (14:52)
[2019-11-28] MEDS: diphenhydrAMINE 50 mg/mL SDV 1mL IVP (14:53)
[2019-11-28] MEDS: metoclopramide 5 mg/mL SDV 2 mL 10 MG IVP (14:53)
[2019-11-28 14:54] LABS: HCG Qualitative Urine. Negative (Negative); Urine Color Yellow (Yellow)
[2019-11-28] MEDS: ketorolac 30 mg/mL INJ 15 MG IVP (14:54)
[2019-11-28 14:55] LABS: Add Urine Microscopic? YES; Bilirubin Urine Neg (Negative); Blood Urine Neg (Negative); Glucose Urine UA Norm (Normal); Ketones Urine Negative (Negative); Leukocyte Esterase Urine Trace (Negative); Nitrate Urine Positive (Negative); Protein Urine Neg (Negative); Specific Gravity, Urine 1.015 (1.005-1.030); Urobilinogen Urine Neg (Negative); pH Urine 5 (5-7)
--- NOTE | 2019-11-28 14:57 | ED_ITS ---
HPI - Headache General: Chief Complaint: Headache Stated Complaint: migraine Time Seen by Provider: 11/28/19 14:24 History of Present Illness: HPI Narrative: This patient is a 24-year-old female who presents with a migraine. She does not have a history of migraines. This headache started on Monday and has been constant. She described as throbbing and pressure across the top of her frontal area. She said she had a fever of 104 the day it started but has not had a fever since then. She has had nausea but no vomiting. She feels dizzy and off balance. She has had a little bit of trouble with her speech in terms of word finding. She also notes blurry vision and loss of peripheral vision in both eyes temporally. She is tried Tylenol and ibuprofen with minimal relief. She went to [facility] and they sent her to the ED for further evaluation. 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 MD elicited complaint: headache Onset (ago): day(s) (6) Onset description: gradually Location: frontal Severity: severe Quality & Timing: throbbing Exacerbating factors: exertion Relieving factors: rest Associated symptoms: Reports fever(s) (Only the first day), loss of vision (Describes having decreased vision in the temporal clarke bilaterally), nausea, photophobia and sound sensitivity; Deny chest pain, neck stiffness or rash Treatments prior to arrival: acetaminophen and ibuprofen Review of Systems General: Reports: 10 or more systems reviewed and unremarkable except in HPI and below Const: Reports: fever(s) (Only the first day) ENMT: Denies: odynophagia Card: Denies: chest pain or swelling of feet/ankles Resp: Denies: dyspnea, productive cough or non-productive cough GI: Reports: nausea : Denies: flank pain or difficulty voiding Musc: Denies: neck pain or back pain Skin/Breast: Denies: rash Neuro: Denies: headache(s), numbness in extremities or weakness in extremities Rowdy/Lymph: Denies: easy bruising or easy bleeding PFS ED PFSH: Social History (Updated 11/28/19 @ 13:24 by Augusto Auguste RN) Smoking and tobacco status: never smoked Alcohol intake: current Alcohol intake frequency: holidays/special occasions only Female Reproductive History: Date of last menstrual period: 09/10/20 Physical Exam Const: COMMON NORMALS: no acute distress, patient oriented x3, no limitations and alert GENERAL APPEARANCE: cooperative HENMT: HEAD & SCALP: normal to inspection FACE & SINUS: normal facial exam Eye: GENERAL EYE: appearance normal, both eyes and all related structures VISUAL CLARKE: Yes bitemporal visual field cut (Distant temporal clarke seem diminished) DIRECT OPHTHALMOSCOPY: Yes photophobia Neck/C-Spine: COMMON NORMALS: supple, no meningeal signs and no JVD Chest: COMMONS NORMALS: normal inspection of the chest Resp: COMMON NORMALS: normal respiratory effort, No use of accessory muscles and clear to auscultation bilaterally AUSCULTATION: clear to auscultation bilaterally Cardio: COMMON NORMALS: no JVD, regular rate, regular rhythm and No murmurs present (Cardio) RATE: regular rate RHYTHM: regular rhythm GI: COMMON NORMALS: Normal to inspection, nondistended, normoactive bowel sounds present, Soft to palpation and non-tender INSPECTION: Yes normal to inspection AUSCULTATION: Yes normoactive bowel sounds PALPATION: Yes Soft to palpation Back/Pelvis: COMMON NORMALS: thoracic and lumbar spine normal to inspection Extremity: COMMON NORMALS: normal to inspection Neuro: COMMON NORMALS: patient oriented x3, moves all extremities, no focal motor deficits and no sensory deficits noted SENSORIUM/ORIENTATION: Yes alert MENINGEAL SIGNS: Yes no meningeal signs CRANIAL NERVES: Yes CN normal except as noted GAIT: Yes Normal gait present Psych: COMMON NORMALS: mental status grossly normal, cooperative and normal affect Skin: COMMON NORMALS: no rashes or lesions noted and turgor normal GENERAL SKIN EXAM: no rashes or lesions noted and turgor normal Course ED course: Patient's headache improved with medication. CT was negative. I advised her to follow-up with her own doctor because I was concerned about the peripheral vision changes. She might need further evaluation with an MRI. Her urine was also quite suggestive of infection but she said she really was not having a lot of symptoms. I followed it up the next day and the culture was Fernando growing large numbers of gram-negative rods. I contacted her by phone this morning and she did say she was having a little bit of dysuria. We decided to go ahead and treat. She had [facility] called into the [facility] this morning. Overall she said she is feeling much better. Vital Signs: Vital signs: Vital Signs Temperature 97.2 F L 11/28/19 13:19 Pulse Rate 93 11/28/19 17:23 Respiratory Rate 14 11/28/19 17:23 Blood Pressure 109/78 11/28/19 17:23 Pulse Oximetry 98 11/28/19 17:23 MDM - Headache Lab Data: Labs: Lab Results 11/28/19 11/28/19 11/28/19 Range/Units 14:40 14:40 15:16 WBC 5.5 (4.0-10.0) 10^3/ uL RBC 5.09 (4.1-5.3) 10^6/u L Hgb 14.8 (11.5-15.3) g/dL Hct 46.8 (37.0-47.0) % MCV 91.9 (81-99) fL MCH 29.1 (28.0-34.0) pg MCHC 31.6 (30.0-36.0) g/dL RDW 12.5 (12.1-15.1) % Plt Count 361 (130-400) 10^3/c mm MPV 10.2 (7.4-10.4) fL Neut % (Auto) 49.0 % Lymph % (Auto) 42.5 % Nicollet % (Auto) 5.6 % Eos % (Auto) 2.0 % Baso % (Auto) 0.7 % Neut # (Auto) 2.70 (1.8-7.7) 10^3/u L Lymph # (Auto) 2.3 (0.8-4.8) 10^3/u L Nicollet # (Auto) 0.3 (0.2-0.9) 10^3/u L Eos # (Auto) 0.1 (0.0-0.8) 10^3/u L Baso # (Auto) 0.0 (0.0-0.1) 10^3/u L Nucleated RBC % (a uto) 0 % Nucleated RBCs # 0.0 /100WBC Sodium (136-145) mmol/L Potassium (3.5-5.1) mmol/L Chloride (98-107) mmol/L Carbon Dioxide (22-29) mmol/L Anion Gap (5-19) BUN (6-20) mg/dL Creatinine (0.5-0.9) mg/dL GFR Calculation (90-130) mL/min Glucose (65-115) mg/dL Calculated Osmolal ity (285-295) mOsm/k g Calcium (8.5-10.5) mg/dL Total Bilirubin (0.15-1.2) mg/dL AST (0-32) U/L ALT (0-33) U/L Alkaline Phosphata se (35-105) IU/L Total Protein (6.6-8.7) g/dL Albumin (3.5-5.2) g/dL Globulin (1.3-4.6) g/dL HCG, Qual Negative (Negative) Urine Color Yellow (Yellow) Urine Appearance Sl cloudy A (CLEAR) Urine pH 5 (5-7) Ur Specific Gravit y 1.015 (1.005-1.030) Urine Protein Neg (Negative) Urine Glucose (UA) Norm (Normal) Urine Ketones Negative (Negative) Urine Blood Neg (Negative) Urine Nitrate Positive H (Negative) Urine Bilirubin Neg (Negative) Urine Urobilinogen Neg (Negative) mg/dL Ur Leukocyte Keren ase Trace H (Negative) Urine RBC None (0-2) /hpf Urine WBC 40-55 H (0-5) /hpf Ur Squamous Epith Cells 0-4 H (0-5) /hpf Amorphous Sediment Not Reportable Urine Bacteria 4+ H (NONE) /hpf 11/28/19 Range/Units 15:16 WBC (4.0-10.0) 10^3/ uL RBC (4.1-5.3) 10^6/u L Hgb (11.5-15.3) g/dL Hct (37.0-47.0) % MCV (81-99) fL MCH (28.0-34.0) pg MCHC (30.0-36.0) g/dL RDW (12.1-15.1) % Plt Count (130-400) 10^3/c mm MPV (7.4-10.4) fL Neut % (Auto) % Lymph % (Auto) % Nicollet % (Auto) % Eos % (Auto) % Baso % (Auto) % Neut # (Auto) (1.8-7.7) 10^3/u L Lymph # (Auto) (0.8-4.8) 10^3/u L Nicollet # (Auto) (0.2-0.9) 10^3/u L Eos # (Auto) (0.0-0.8) 10^3/u L Baso # (Auto) (0.0-0.1) 10^3/u L Nucleated RBC % (a uto) % Nucleated RBCs # /100WBC Sodium 135 L (136-145) mmol/L Potassium 3.8 (3.5-5.1) mmol/L Chloride 101 (98-107) mmol/L Carbon Dioxide 24 (22-29) mmol/L Anion Gap 13.8 (5-19) BUN 9 (6-20) mg/dL Creatinine 0.7 (0.5-0.9) mg/dL GFR Calculation 102.8 (90-130) mL/min Glucose 86 (65-115) mg/dL Calculated Osmolal ity 278 L (285-295) mOsm/k g Calcium 9.9 (8.5-10.5) mg/dL Total Bilirubin 0.5 (0.15-1.2) mg/dL AST 16 (0-32) U/L ALT 20 (0-33) U/L Alkaline Phosphata se 79 (35-105) IU/L Total Protein 7.8 (6.6-8.7) g/dL Albumin 4.9 (3.5-5.2) g/dL Globulin 2.9 (1.3-4.6) g/dL HCG, Qual (Negative) Urine Color (Yellow) Urine Appearance (CLEAR) Urine pH (5-7) Ur Specific Gravit y (1.005-1.030) Urine Protein (Negative) Urine Glucose (UA) (Normal) Urine Ketones (Negative) Urine Blood (Negative) Urine Nitrate (Negative) Urine Bilirubin (Negative) Urine Urobilinogen (Negative) mg/dL Ur Leukocyte Keren ase (Negative) Urine RBC (0-2) /hpf Urine WBC (0-5) /hpf Ur Squamous Epith Cells (0-5) /hpf Amorphous Sediment Urine Bacteria (NONE) /hpf Discharge Plan Discharge Patient Disposition: Home Clinical Impression: Headache Qualifiers: Headache type: unspecified Headache chronicity pattern: acute headache Intractability: not intractable Qualified Code(s): R51 - Headache Condition: Stable Prescriptions: New Fioricet 50-300-40 mg capsule 1 cap PO Q6H PRN (Reason: headache) Qty: 14 RF: 0 No Action paroxetine HCl 40 mg Tablet 40 mg PO DAILY RF: 0 Discharge Orders: Discharge Order (Routine); Ordered 11/28/19 Ordered By: Yessica Liao Referrals: Estuardo Beth MD [Primary Care Provider] - 4-7 days (especially if not improving) Discharge Diet: Usual diet Discharge Activity: Resume usual activity Patient Instructions: Acute Headache (ED) Activity Restrictions/Additional Instructions: Return to the emergency department for any new or worse symptoms. Follow-up with Dr. Beth for further evaluation within the next week or so. Even though the work-up today was normal your symptoms are still concerning and may require further evaluation. Discharge Date/Time: 11/28/19 17:24 Coding Level of Care Code ED Ballistics Tester for Chg Fwd Exam Comprehensive
[2019-11-28 15:02] LABS: Add Urine Culture? Yes; Bacteria Urine 4+ /hpf; Squamous Epithelial Cell Urine 0-4 /hpf (0-5); WBC Urine 40-55 /hpf (0-5)
[2019-11-28 15:21] LABS: Basophils % 0.7 %; Eosinophils # 0.1 10^3/uL (0.0-0.8); Hematocrit 46.8 % (37.0-47.0); Hemoglobin 14.8 g/dL (11.5-15.3); Lymphocytes # 2.3 10^3/uL (0.8-4.8); Lymphocytes % 42.5 %; Mean Corpuscular HGB Conc 31.6 g/dL (30.0-36.0); Mean Corpuscular Hemoglobin 29.1 pg (28.0-34.0); Mean Corpuscular Volume 91.9 fL (81-99); Mean Platelet Volume 10.2 fL (7.4-10.4); Monocytes # 0.3 10^3/uL (0.2-0.9); Monocytes % 5.6 %; Nucleated Red Blood Cells % 0 %; Platelet Count 361 10^3/cmm (130-400); Red Blood Count 5.09 10^6/uL (4.1-5.3); Red Cell Distribution Width 12.5 % (12.1-15.1); White Blood Count 5.5 10^3/uL (4.0-10.0)
[2019-11-28 15:41] LABS: Alanine Aminotransferase 20 U/L (0-33); Albumin Level 4.9 g/dL (3.5-5.2); Alkaline Phosphatase 79 IU/L (35-105); Anion Gap 13.8 (5-19); Aspartate Amino Transferase 16 U/L (0-32); Blood Urea Nitrogen 9 mg/dL (6-20); Calcium 9.9 mg/dL (8.5-10.5); Carbon Dioxide 24 mmol/L (22-29); Chloride 101 mmol/L (98-107); Globulin 2.9 g/dL (1.3-4.6); Glomerular Filtration Rate 102.8 mL/min (90-130); Glucose 86 mg/dL (65-115); Osmolality Calculated 278 mOsm/kg (285-295); Potassium 3.8 mmol/L (3.5-5.1); Sodium 135 mmol/L (136-145); Total Bilirubin 0.5 mg/dL (0.15-1.2); Total Protein 7.8 g/dL (6.6-8.7)
[2019-11-28 17:23] VITALS: BP 109/78; PULSE 93; RESP 14; O2SAT 98
--- NOTE | 2019-11-29 11:11 | PC.NURSE ---
Patient called and notified of urine culture results by Dr. Liao. Dr. Liao also educated the patient that she would need to be placed on Bactrim DS PO BID x 7 days. Prescription called in to patients preferred pharmacy which is [facility].
== END 2019-11-28 17:24 | disposition home or self-care (01) ==
PROVIDERS: Emergency Provider Emergency Medicine; PCP Family Medicine
DX: R51.9 Headache, unspecified (principal)
CPT/HCPCS: 12345; 36415; 70450; 80053; 81001; 81025; 85025; 87077; 87086; 87186; 96361; 96374; 96375; 99282; 99283; J1200; J1885; J2765; J7030

== ENCOUNTER 2020-06-28 13:29 | Emergency (ER) | payer BC, MEDICAID, SELFPAY ==
[2020-06-28 13:49] VITALS: BP 111/66; PULSE 87; RESP 16; TEMP 37.2; O2SAT 98; BMI 25.0
--- NOTE | 2020-06-28 13:54 | ED_ITS ---
HPI - URI/Sore Throat General: Chief Complaint: General Medical Stated Complaint: Fever, Cough, Sore Throat Time Seen by Provider: 06/28/20 13:51 Source: patient Mode of arrival: ambulatory Limitations: no limitations History of Present Illness: HPI Narrative: 25-year-old female comes in with cough, nasal drainage, nasal congestion. Patient also reports some nausea and vomiting and diarrhea. Patient appears mildly unwell. Patient appears in no acute distress. Patient is 18 weeks . MD elicited complaint: fever, cough, rhinorrhea and nasal congestion Onset (ago): day(s) Description of mucous: clear Able to tolerate fluids by mouth: No Relieving factors: nothing Context: sick contacts (Daughters ill with respiratory infection) Associated symptoms: Reports chills, cough, diarrhea, fever(s), nasal congestion, rhinorrhea and vomiting Review of Systems General: Reports: 10 or more systems reviewed and unremarkable except in HPI and below Const: Reports: fever(s) and chills ENMT: Reports: nasal congestion GI: Reports: vomiting and diarrhea PFSH ED PFSH: Social History (Updated 11/28/19 @ 13:24 by Augusto Auguste RN) Smoking and tobacco status: never smoked Alcohol intake: current Alcohol intake frequency: holidays/special occasions only Female Reproductive History: Date of last menstrual period: 11/07/19 Physical Exam Const: COMMON NORMALS: no acute distress and patient oriented x3 GENERAL APPEARANCE: cooperative HENMT: COMMON NORMALS: normocephalic, TM's normal bilaterally and Normal external nose present HEAD & SCALP: normal to inspection and normocephalic NOSE: Normal external nose present, Abnormal mucous membranes and turbinates present and Nasal discharge present TYMPANIC MEMBRANE: TM's normal bilaterally THROAT: posterior oropharynx normal Eye: GENERAL EYE: appearance normal, both eyes and all related structures Neck/C-Spine: COMMON NORMALS: full ROM Lymph: LYMPHATIC: no lymphadenopathy noted Chest: COMMONS NORMALS: normal inspection of the chest Resp: COMMON NORMALS: normal respiratory effort and clear to auscultation bilaterally EFFORT & INSPECTION: Yes able to speak in complete sentences AUSCULTATION: clear to auscultation bilaterally Cardio: COMMON NORMALS: regular rate and regular rhythm RATE: regular rate RHYTHM: regular rhythm GI: COMMON NORMALS: non-tender Back/Pelvis: COMMON NORMALS: thoracic and lumbar spine normal to inspection Extremity: COMMON NORMALS: normal to inspection Neuro: COMMON NORMALS: patient oriented x3 and moves all extremities Psych: COMMON NORMALS: mental status grossly normal and cooperative Skin: COMMON NORMALS: no rashes or lesions noted GENERAL SKIN EXAM: no rashes or lesions noted Course Vital Signs: Vital signs: Vital Signs Temperature 99.0 F 06/28/20 13:49 Pulse Rate 71 06/28/20 15:14 Respiratory Rate 18 06/28/20 15:14 Blood Pressure 104/76 06/28/20 15:14 Pulse Oximetry 97 06/28/20 15:14 MDM - URI/Sore Throat MDM Narrative: Medical decision making narrative: Patient comes in today with complaints of nausea and vomiting and diarrhea for 2 days. Patient reports she is 18 weeks and was also concerned due to decreased activity from baby. On exam respirations were even lungs were clear to auscultation. Skin was warm and dry. Abdomen was soft nontender. Differential diagnosis includes gastroenteritis, dehydration, colitis. Laboratory values were unremarkable. Attempted heart tones was able to collect them we went ahead and did a ultrasound and noted a good healthy heart rate and a baby around gestation of 17 weeks. Patient had improvement after 1 L of IV fluids and 5 mg of Reglan. Patient was able to tolerate oral fluids. Reviewed exam with patient with recommendations for further treatment with promethazine and increase diet as tolerated. Patient reported understanding agreed to plan. Lab Data: Labs: Lab Results 06/28/20 06/28/20 06/28/20 Range/Units 14:43 14:43 14:54 WBC 8.2 (4.0-10.0) 10^3/ uL RBC 4.20 (4.1-5.3) 10^6/u L Hgb 12.8 (11.5-15.3) g/dL Hct 38.4 (37.0-47.0) % MCV 91.4 (81-99) fL MCH 30.5 (28.0-34.0) pg MCHC 33.3 (30.0-36.0) g/dL RDW 13.2 (12.1-15.1) % Plt Count 258 (130-400) 10^3/c mm MPV 10.4 (7.4-10.4) fL Neut % (Auto) 73.3 % Lymph % (Auto) 18.4 % Chase % (Auto) 6.2 % Eos % (Auto) 1.1 % Baso % (Auto) 0.4 % Neut # (Auto) 6.02 (1.8-7.7) 10^3/u L Lymph # (Auto) 1.5 (0.8-4.8) 10^3/u L Chase # (Auto) 0.5 (0.2-0.9) 10^3/u L Eos # (Auto) 0.1 (0.0-0.8) 10^3/u L Baso # (Auto) 0.0 (0.0-0.1) 10^3/u L Nucleated RBC % (a uto) 0 % Nucleated RBCs # 0.0 /100WBC Sodium (136-145) mmol/L Potassium (3.5-5.1) mmol/L Chloride (98-107) mmol/L Carbon Dioxide (22-29) mmol/L Anion Gap (5-19) BUN (6-20) mg/dL Creatinine (0.5-0.9) mg/dL GFR Calculation (90-130) mL/min Glucose (65-115) mg/dL Calculated Osmolal ity (285-295) mOsm/k g Calcium (8.5-10.5) mg/dL Total Bilirubin (0.15-1.2) mg/dL AST (0-32) U/L ALT (0-33) U/L Alkaline Phosphata se (35-105) IU/L Total Protein (6.6-8.7) g/dL Albumin (3.5-5.2) g/dL Globulin (1.3-4.6) g/dL Urine Color (Yellow) Urine Appearance (CLEAR) Urine pH (5-7) Ur Specific Gravit y (1.005-1.030) Urine Protein (Negative) Urine Glucose (UA) (Normal) Urine Ketones (Negative) Urine Blood (Negative) Urine Nitrate (Negative) Urine Bilirubin (Negative) Prot Sulfosalicyli c Acd (Negative) Urine Urobilinogen (Negative) mg/dL Ur Leukocyte Keren ase (Negative) Influenza Type A A g Negative (Negative) Influenza Type B A g Negative (Negative) SARS-CoV-2 Ag (Rap id) Negative (Negative) 06/28/20 06/28/20 Range/Units 14:54 16:24 WBC (4.0-10.0) 10^3/ uL RBC (4.1-5.3) 10^6/u L Hgb (11.5-15.3) g/dL Hct (37.0-47.0) % MCV (81-99) fL MCH (28.0-34.0) pg MCHC (30.0-36.0) g/dL RDW (12.1-15.1) % Plt Count (130-400) 10^3/c mm MPV (7.4-10.4) fL Neut % (Auto) % Lymph % (Auto) % Chase % (Auto) % Eos % (Auto) % Baso % (Auto) % Neut # (Auto) (1.8-7.7) 10^3/u L Lymph # (Auto) (0.8-4.8) 10^3/u L Chase # (Auto) (0.2-0.9) 10^3/u L Eos # (Auto) (0.0-0.8) 10^3/u L Baso # (Auto) (0.0-0.1) 10^3/u L Nucleated RBC % (a uto) % Nucleated RBCs # /100WBC Sodium 135 L (136-145) mmol/L Potassium 3.9 (3.5-5.1) mmol/L Chloride 104 (98-107) mmol/L Carbon Dioxide 25 (22-29) mmol/L Anion Gap 9.9 (5-19) BUN 4 L (6-20) mg/dL Creatinine 0.4 L (0.5-0.9) mg/dL GFR Calculation 194.5 H (90-130) mL/min Glucose 86 (65-115) mg/dL Calculated Osmolal ity 276 L (285-295) mOsm/k g Calcium 8.2 L (8.5-10.5) mg/dL Total Bilirubin 0.2 (0.15-1.2) mg/dL AST 8 (0-32) U/L ALT 8 (0-33) U/L Alkaline Phosphata se 54 (35-105) IU/L Total Protein 5.8 L (6.6-8.7) g/dL Albumin 3.6 (3.5-5.2) g/dL Globulin 2.2 (1.3-4.6) g/dL Urine Color Colorless (Yellow) Urine Appearance Clear (CLEAR) Urine pH 8 H (5-7) Ur Specific Gravit y 1.010 (1.005-1.030) Urine Protein Neg (Negative) Urine Glucose (UA) Norm (Normal) Urine Ketones Negative (Negative) Urine Blood Neg (Negative) Urine Nitrate Negative (Negative) Urine Bilirubin Neg (Negative) Prot Sulfosalicyli c Acd Negative (Negative) Urine Urobilinogen Norm (Negative) mg/dL Ur Leukocyte Keren ase Negative (Negative) Influenza Type A A g (Negative) Influenza Type B A g (Negative) SARS-CoV-2 Ag (Rap id) (Negative) Discharge Plan Discharge Patient Disposition: Home Clinical Impression: Gastroenteritis and colitis, viral Condition: Stable Prescriptions: New promethazine 12.5 mg tablet 12.5 mg PO TID PRN (Reason: nausea and vomiting) Qty: 14 RF: 0 No Action Tylenol 325 mg Tablet 325 - 650 mg PO Q4H PRN (Reason: PAIN/HEADACHE) RF: 0 Flintstones Gummies Tablet,Chewable 1 tab PO DAILY RF: 0 Discharge Orders: Discharge ED (Routine); Ordered 06/28/20 Ordered By: Eze Gutierrez Referrals: Estuardo Beth MD [Primary Care Provider] - Discharge Diet: Advance as tolerated Discharge Activity: Increase activity as tolerated Patient Instructions: Gastroenteritis (ED), Opioid Safety Activity Restrictions/Additional Instructions: Drink plenty of fluids. Healthy diet and exercise. Increase diet as tolerated. Avoid greasy and spicy foods. Follow-up with primary care for further treatment. Return to the ER for new concerns. Coding Level of Care Code ED Sports Physical Therapist for Maksim Fwd Exam Comprehensive
[2020-06-28 14:56] LABS: Basophils % 0.4 %; Eosinophils # 0.1 10^3/uL (0.0-0.8); Eosinophils % 1.1 %; Hematocrit 38.4 % (37.0-47.0); Hemoglobin 12.8 g/dL (11.5-15.3); Lymphocytes # 1.5 10^3/uL (0.8-4.8); Lymphocytes % 18.4 %; Mean Corpuscular HGB Conc 33.3 g/dL (30.0-36.0); Mean Corpuscular Hemoglobin 30.5 pg (28.0-34.0); Mean Corpuscular Volume 91.4 fL (81-99); Mean Platelet Volume 10.4 fL (7.4-10.4); Monocytes # 0.5 10^3/uL (0.2-0.9); Monocytes % 6.2 %; Neutrophils # 6.02 10^3/uL (1.8-7.7); Neutrophils % 73.3 %; Nucleated Red Blood Cells % 0 %; Platelet Count 258 10^3/cmm (130-400); Red Cell Distribution Width 13.2 % (12.1-15.1); White Blood Count 8.2 10^3/uL (4.0-10.0)
[2020-06-28] MEDS: sodium chloride 0.9% 1,000 ML 999 ML IV (15:13)
[2020-06-28] MEDS: metoclopramide 5 mg/mL SDV 2 mL IVP (15:13)
[2020-06-28 15:14] VITALS: BP 104/76; PULSE 71; RESP 18; O2SAT 97
[2020-06-28 15:14] LABS: Alanine Aminotransferase 8 U/L (0-33); Albumin Level 3.6 g/dL (3.5-5.2); Alkaline Phosphatase 54 IU/L (35-105); Anion Gap 9.9 (5-19); Aspartate Amino Transferase 8 U/L (0-32); Blood Urea Nitrogen 4 mg/dL (6-20); Calcium 8.2 mg/dL (8.5-10.5); Carbon Dioxide 25 mmol/L (22-29); Chloride 104 mmol/L (98-107); Globulin 2.2 g/dL (1.3-4.6); Glomerular Filtration Rate 194.5 mL/min (90-130); Glucose 86 mg/dL (65-115); Osmolality Calculated 276 mOsm/kg (285-295); Potassium 3.9 mmol/L (3.5-5.1); Sodium 135 mmol/L (136-145); Total Bilirubin 0.2 mg/dL (0.15-1.2); Total Protein 5.8 g/dL (6.6-8.7)
--- NOTE | 2020-06-28 15:17 | USR_ITS ---
PROCEDURE INFORMATION: Exam: US , Limited Exam date and time: 06/28/2020 3:39 PM Age: 25 years old Clinical indication: Lmp or gestational age (in weeks): 17 weeks 4 days (by prior US exam); Other: Poor movement and unable to find heartones in er. ; ; Additional info: Poor movement, unable to find fht TECHNIQUE: Imaging protocol: Real-time ultrasound of the maternal uterus with image documentation. Exam focused on the clinical indication. COMPARISON: US OB <= 14 weeks fetus [id number] 04/08/2020 12:02 PM FINDINGS: Gestation: Single viable intrauterine . position: Transverse position. heart rate: heart beat 141 bpm. Placenta: Low-lying posterior placenta with borderline placenta previa. Amniotic fluid: Subjectively normal amniotic fluid. MATERNAL: Cervix: 3.8 cm closed cervix. US/US OB limited [id number] IMPRESSION: 1. Single viable intrauterine . 2. Transverse position. 3. 3.8 cm closed cervix. 4. Subjectively normal amniotic fluid. 5. Low-lying posterior placenta with borderline placenta previa.
[2020-06-28 15:27] LABS: Influenza A by IFA Negative (Negative); Influenza B by IFA Negative (Negative); SARS Covid-2 Antigen Negative (Negative)
[2020-06-28 16:32] LABS: Add Urine Microscopic? NO; Charge for UA Resulting for Rev
[2020-06-28 16:36] LABS: Bilirubin Urine Neg (Negative); Blood Urine Neg (Negative); Glucose Urine UA Norm (Normal); Ketones Urine Negative (Negative); Leukocyte Esterase Urine Negative (Negative); Nitrate Urine Negative (Negative); Protein Urine Neg (Negative); Sulfosalicylic Acid Urine Negative (Negative); Urine Appearance Clear (CLEAR); Urine Color Colorless (Yellow); Urobilinogen Urine Norm (Negative); pH Urine 8 (5-7)
== END 2020-06-28 17:36 | disposition home or self-care (01) ==
PROVIDERS: Emergency Provider Nurse Practitioner Family; PCP Family Medicine
DX: A08.39 Other viral enteritis (principal)
CPT/HCPCS: 76815; 80053; 81003; 85025; 87426; 87804; 96361; 96374; 99284; J2765; J7030

== ENCOUNTER 2020-07-29 17:45 | Emergency (ER) | payer OTHER, SELFPAY ==
[2020-07-29 18:24] VITALS: BP 121/71; PULSE 86; RESP 18; TEMP 36.8; O2SAT 99; BMI 27.1
--- NOTE | 2020-07-29 19:03 | USR_ITS ---
PROCEDURE INFORMATION: Exam: US , Limited Exam date and time: 07/29/2020 8:33 PM Age: 25 years old Clinical indication: Injury or trauma; Fall; Work related; Blunt trauma; Lower; Injury date: Today; ; Additional info: 22 week fetus. S/P fall feels contractions. TECHNIQUE: Imaging protocol: Real-time ultrasound of the maternal uterus with image documentation. Exam focused on the clinical indication. COMPARISON: US OB >= 14 weeks fetus [id number] 07/13/2020 2:19 PM FINDINGS: Gestation: Single live intrauterine . presentation: Cephalic presentation. heart rate: 144 bpm. Placenta: Posterior placenta. No previa. Amniotic fluid: Amniotic fluid volume is subjectively normal. BIOMETRY: Gestational age (AUA): 22 weeks 5 days Femur length: 3.9 cm (22 weeks 5 days) MATERNAL: Cervix: The cervix is long and closed. US/US OB limited [id number] IMPRESSION: Single live intrauterine of approximately 22 weeks 5 days. No apparent complications.
--- NOTE | 2020-07-29 19:03 | XRR_ITS ---
PROCEDURE INFORMATION: Exam: XR Cervical Spine Exam date and time: 07/29/2020 7:06 PM Age: 25 years old Clinical indication: Neck pain; Additional info: Fall TECHNIQUE: Imaging protocol: XR of the cervical spine. Views: 2 or 3 views. COMPARISON: No relevant prior studies available. FINDINGS: Bones/joints: Normal. No acute fracture. Normal alignment. Soft tissues: Unremarkable. XR/XR cervical spine 3V* [id number] IMPRESSION: No acute findings.
--- NOTE | 2020-07-29 19:03 | XRR_ITS ---
PROCEDURE INFORMATION: Exam: XR Right Shoulder Exam date and time: 07/29/2020 7:04 PM Age: 25 years old Clinical indication: Pain; Shoulder; Right; Additional info: Fall TECHNIQUE: Imaging protocol: XR Right shoulder. Views: 2 or more views. COMPARISON: No relevant prior studies available. FINDINGS: Bones/joints: Normal. Soft tissues: Normal. XR/XR shoulder RT min 2V* [id number] IMPRESSION: No acute findings.
--- NOTE | 2020-07-29 19:23 | W.ED.TRAUMA ---
HPI - Trauma General: Chief Complaint: Trauma Stated Complaint: PALLET FELL ON HER AT WORK 22 Time Seen by Provider: 07/29/20 18:54 History of Present Illness: HPI narrative: The patient is a 25-year-old female G4, P3 at 22 weeks gestation who comes to the ER after some boxes fell on her at work. She says the boxes were filled with papers and stacked 8 foot high and she was bending over and some of the boxes fell on top of her knocking her to the ground. She complains of neck pain and right shoulder pain. She denies loss of consciousness and says the boxes were not that heavy but they did not her to the ground and a customer helped her up. Denies headache, loss of consciousness, unclear thinking. She just complains of mild neck pain and right shoulder pain. She says she can feel contractions and she has had premature labor before she describes as 39 weeks and a couple weeks prior to that with her other . 22 weeks is not viable. She has no vaginal discharge, bleeding, fluid. She can feel the fetus moving. Cervix is appropriate for gestational age just above the umbilicus and not tender. MD complaint: injury and pain Loss of Consciousness: no Severity: mild Associated symptoms: Reports no associated symptoms; Denies abdominal pain, back pain, chest pain, confusion, dizziness or headache(s) Review of Systems General: Reports: 10 or more systems reviewed and unremarkable except in HPI and below Const: Denies: fatigue Eyes: Denies: change in vision, blurry vision or eye redness ENMT: Denies: throat pain, swelling of lips/tongue, ear or mastoid pain or nasal congestion Card: Denies: chest pain, palpitations, irregular heart rhythm, edema, dyspnea on exertion or orthopnea Resp: Denies: dyspnea, productive cough or non-productive cough GI: Denies: abdominal pain, diarrhea or GI cramping : Denies: flank pain, difficulty voiding, urinary frequency or urinary urgency Musc: Reports: neck pain and joint pain; Denies: back pain, extremity pain, joint redness, limited range of motion or muscle weakness Skin/Breast: Denies: rash, pruritus, erythema, skin pain or skin tenderness Neuro: Denies: headache(s), numbness in extremities, weakness in extremities, sensory changes, difficulty walking, dizziness, confusion or Slurred speech present Psych: Denies: anxiety or depression Endo: Denies: polyuria All/Imm: Denies: urticaria, throat swelling or tongue swelling PFSH ED PFSH: Social History (Updated 11/28/19 @ 13:24 by Augusto Auguste RN) Smoking and tobacco status: never smoked Alcohol intake: current Alcohol intake frequency: holidays/special occasions only Female Reproductive History: Date of last menstrual period: 02/21/20 Physical Exam Const: COMMON NORMALS: no acute distress, average body habitus, patient oriented x3, no limitations, healthy appearing, alert and well nourished GENERAL APPEARANCE: cooperative, comfortable, well kempt and well developed ORIENTATION/CONSCIOUSNESS: Yes awake, Yes oriented to person, Yes oriented to place and Yes oriented to time HENMT: COMMON NORMALS: normocephalic, external ears normal and Normal external nose present HEAD & SCALP: normal to inspection and normocephalic NOSE: Normal external nose present EXTERNAL EAR: Yes external ears normal MOUTH: Normal oral and palatal mucosa present THROAT: posterior oropharynx normal Eye: COMMON NORMALS: Equal, round and reactive pupils present and EOMs intact bilaterally GENERAL EYE: appearance normal, both eyes and all related structures PUPIL: Yes Equal, round and reactive pupils present Neck/C-Spine: COMMON NORMALS: full ROM, no lymphadenopathy, no meningeal signs and no JVD GENERAL: Yes normal visual inspection OTHER: Mild tenderness to paracervical musculature. No bony tenderness. Full range of motion. Lymph: LYMPHATIC: no lymphadenopathy noted Chest: COMMONS NORMALS: normal inspection of the chest and normal palpation of entire chest wall Resp: COMMON NORMALS: normal respiratory effort, No retractions, No use of accessory muscles, clear to auscultation bilaterally and percussion normal EFFORT & INSPECTION: Yes able to speak in complete sentences AUSCULTATION: clear to auscultation bilaterally PERCUSSION: percussion normal Cardio: COMMON NORMALS: no JVD, regular rate, regular rhythm, S1 normal heart sound present, S2 normal heart sound present and Peripheral pulses 2+ throughout RATE: regular rate RHYTHM: regular rhythm HEART SOUNDS: S1 normal heart sound present and S2 normal heart sound present PERIPHERAL PULSES: Peripheral pulses 2+ throughout GI: COMMON NORMALS: Normal to inspection, nondistended, normoactive bowel sounds present, Soft to palpation, non-tender and no masses INSPECTION: Yes normal to inspection PALPATION: Yes Soft to palpation : COMMON NORMALS: Yes no CVA tenderness BLADDER/KIDNEY EXAM: Yes no CVA tenderness Back/Pelvis: COMMON NORMALS: no CVA tenderness, thoracic and lumbar spine normal to inspection, no thoracic nor lumbar tenderness and thoraco-lumbar ROM normal Extremity: COMMON NORMALS: normal to inspection, full ROM, capillary refill normal, no joint enlargement and no pedal edema GENERAL: Yes normal exam except as noted OTHER: Mild tenderness to right shoulder joint. Intact full range of motion. Mild pain with range of motion. Neurovascularly intact distal to injury. Neuro: COMMON NORMALS: patient oriented x3, CN's II-XII intact bilaterally, moves all extremities, no focal motor deficits, no sensory deficits noted and gait normal SENSORIUM/ORIENTATION: Yes alert, Yes oriented to person, Yes oriented to place and Yes oriented to time MENINGEAL SIGNS: Yes no meningeal signs Psych: COMMON NORMALS: mental status grossly normal, Normal thought process present, cooperative, normal affect and speech normal APPEARANCE: Yes well kempt ATTITUDE: Yes calm SPEECH: Yes normal speech THOUGHT PROCESS: Normal thought process present Skin: COMMON NORMALS: no rashes or lesions noted GENERAL SKIN EXAM: no rashes or lesions noted Course Vital Signs: Vital signs: Vital Signs Temperature 98.2 F 07/29/20 18:24 Pulse Rate 84 07/29/20 21:22 Respiratory Rate 17 07/29/20 21:22 Blood Pressure 121/71 07/29/20 18:24 Pulse Oximetry 98 07/29/20 21:22 MDM - Trauma MDM Narrative: Medical decision making narrative: The patient comes in for a contusion. X-rays negative. Ultrasound normal. Patient was given Tylenol and is stable for discharge. Follow-up with OB in a couple days. Discharge Plan Discharge Patient Disposition: Home Clinical Impression: Contusion Condition: Stable Prescriptions: No Action acetaminophen [Tylenol] 325 mg Tablet 325 - 650 mg PO Q4H PRN (Reason: PAIN/HEADACHE) RF: 0 Flintstones Gummies Tablet,Chewable 1 tab PO DAILY RF: 0 Zofran ODT 4 mg Tablet,Disintegrating 4 mg PO Q6H PRN (Reason: nausea/vomiting) RF: 0 Discharge Orders: Discharge ED (Routine); Ordered 07/29/20 Ordered By: Scooter De La Vega Referrals: Estuardo Beth MD [Primary Care Provider] - Discharge Diet: Advance as tolerated Discharge Activity: Resume usual activity Patient Instructions: Contusion in Adults (ED), Opioid Safety Activity Restrictions/Additional Instructions: You have a contusion. It should begin to feel better in the next day or 2. Please take Tylenol for your pain and follow-up with your OB doctor in a couple days. ER with worsening symptoms at any time. Stand Alone Forms: Work/School Release Coding Level of Care Code ED Hand Screen Printer for Maksim Fwd Exam Comprehensive
[2020-07-29] MEDS: acetaminophen 325 mg Tablet 650 MG PO (20:15)
[2020-07-29 21:22] VITALS: PULSE 84; RESP 17; O2SAT 98
== END 2020-07-29 21:22 | disposition home or self-care (01) ==
PROVIDERS: Emergency Provider Family Medicine; PCP Family Medicine
DX: O9A.212 Injury, poisoning and certain other consequences of external causes complicating pregnancy, second trimester (principal); T14.8XXA Other injury of unspecified body region, initial encounter; Z3A.22 22 weeks gestation of pregnancy; W20.8XXA Other cause of strike by thrown, projected or falling object, initial encounter
CPT/HCPCS: 72040; 73030; 76815; 99283

== ENCOUNTER 2020-10-14 05:45 | Outpatient (CLI) | payer OTHER, SELFPAY ==
[2020-10-14] VITALS (7 sets, daily range): BP systolic 100–129; BP diastolic 56–80; PULSE 80–90; RESP 18; TEMP 36.5–37.2; BMI 29.2
[2020-10-14] MEDS: loperamide 2 mg Capsule PO (06:58)
[2020-10-14] MEDS: sodium chloride 0.9% 1,000 ML 999 ML IV (06:58)
[2020-10-14 07:39] LABS: Basophils # 0.1 10^3/uL (0.0-0.1); Basophils % 0.4 %; Eosinophils # 0.1 10^3/uL (0.0-0.8); Eosinophils % 0.4 %; Hematocrit 43.7 % (37.0-47.0); Hemoglobin 14.8 g/dL (11.5-15.3); Lymphocytes % 6.1 %; Mean Corpuscular HGB Conc 33.9 g/dL (30.0-36.0); Mean Corpuscular Hemoglobin 30.3 pg (28.0-34.0); Mean Corpuscular Volume 89.5 fl (81-99); Mean Platelet Volume 11.1 fL (7.4-10.4); Monocytes # 0.8 10^3/uL (0.2-0.9); Neutrophils # 13.69 10^3/uL (1.8-7.7); Neutrophils % 87.1 %; Nucleated Red Blood Cells % 0 %; Platelet Count 298 10^3/cmm (130-400); Red Blood Count 4.88 10^6/uL (4.1-5.3); Red Cell Distribution Width 12.6 % (12.1-15.1); White Blood Count 15.7 10^3/uL (4.0-10.0)
[2020-10-14] MEDS: ondansetron 2 mg/ML SDV 2 mL 4 MG IVP (07:42)
[2020-10-14] MEDS: sodium chloride 0.9% 2,000 ML 999 ML IV (07:56)
[2020-10-14 07:59] LABS: Alanine Aminotransferase 11 U/L (0-33); Albumin Level 3.7 g/dL (3.5-5.2); Alkaline Phosphatase 169 IU/L (35-105); Anion Gap 18.5 (5-19); Aspartate Amino Transferase 13 U/L (0-32); Blood Urea Nitrogen 8 mg/dL (6-20); Calcium 9.3 mg/dL (8.5-10.5); Carbon Dioxide 19 mmol/L (22-29); Chloride 99 mmol/L (98-107); Creatinine Clr Calc Pharmacy 216.0832; Globulin 3.3 g/dL (1.3-4.6); Glomerular Filtration Rate 194.5 mL/min (90-130); Glucose 92 mg/dL (65-115); Osmolality Calculated 274 mOsm/kg (285-295); Potassium 3.5 mmol/L (3.5-5.1); Sodium 133 mmol/L (136-145); Total Bilirubin 0.3 mg/dL (0.15-1.2)
--- NOTE | 2020-10-14 10:18 | PC.NURSE ---
[facility] prescription at this time Zofran ODT 8mg 4 times a day as needed #30 no refill
== END 2020-10-14 10:31 | disposition home or self-care (01) ==
LOC: OPOB 05:52 → OBGYN 05:53
PROVIDERS: PCP Family Medicine; Visit Provider Family Medicine
DX: O21.9 Vomiting of pregnancy, unspecified (principal); Z3A.00 Weeks of gestation of pregnancy not specified; R19.7 Diarrhea, unspecified; R10.9 Unspecified abdominal pain; N89.8 Other specified noninflammatory disorders of vagina
CPT/HCPCS: 36415; 59025; 80053; 83986; 85025; 87493; 87506; 96361; 96374; 99211; J2405; J7030

== ENCOUNTER → 2020-11-02 17:25 | Outpatient (BNVA) | payer OTHER, SELFPAY | PROVIDERS: PCP Family Medicine; Visit Provider Registered Nurse Neonatal Intensive Care | DX: Z20.822 Contact with and (suspected) exposure to COVID-19 (principal) | CPT/HCPCS: 87635 ==

== ENCOUNTER 2020-11-25 17:52 | Inpatient (IN) | payer BC, MEDICAID, SELFPAY ==
[2020-11-25] VITALS (15 sets, daily range): BP systolic 115–141; BP diastolic 66–92; PULSE 80–103; TEMP 36.1–37.1; BMI 30.4
[2020-11-25 19:02] LABS: Basophils % 0.1 %; Eosinophils # 0.1 10^3/uL (0.0-0.8); Eosinophils % 0.6 %; Hematocrit 38.9 % (37.0-47.0); Hemoglobin 12.9 g/dL (11.5-15.3); Lymphocytes # 1.7 10^3/uL (0.8-4.8); Lymphocytes % 17.8 %; Mean Corpuscular HGB Conc 33.2 g/dL (30.0-36.0); Mean Corpuscular Hemoglobin 29.4 pg (28.0-34.0); Mean Corpuscular Volume 88.6 fl (81-99); Mean Platelet Volume 12.1 fL (7.4-10.4); Monocytes # 0.5 10^3/uL (0.2-0.9); Monocytes % 5.4 %; Neutrophils % 75.6 %; Nucleated Red Blood Cells % 0 %; Platelet Count 250 10^3/cmm (130-400); Red Blood Count 4.39 10^6/uL (4.1-5.3); Red Cell Distribution Width 13.2 % (12.1-15.1); White Blood Count 9.8 10^3/uL (4.0-10.0)
[2020-11-25] MEDS: vancomycin 1,500 MG/300 ML PIGGYBACK 200 MG IV (19:37)
[2020-11-25] MEDS: dextrose 5%-lactated ringers 1,000 ML 125 ML IV (19:43)
[2020-11-25] MEDS: miSOPROStol 100 mcg tablet 25 MCG VAGINAL ×2 (19:45→22:52)
--- NOTE | 2020-11-25 21:00 | PC.NURSE ---
Patient called out and stated that she was itching all over. Vancomycin stopped. patient does have hives on neck, chest and arms. Breath sounds are clear, patient denies itching or swelling in mouth or throat. No swelling observed in throat. Dr Beth called and advised of reaction. Received order for benadryl and change GBS treatment to clindamycin.
[2020-11-25] MEDS: clindamycin 900 MG/50 ML PREMIX 100 MG IV (21:24)
[2020-11-26] VITALS (116 sets, daily range): BP systolic 91–150; BP diastolic 50–99; PULSE 62–121; RESP 14–18; TEMP 36–36.3; O2SAT 87–99
[2020-11-26] MEDS: miSOPROStol 100 mcg tablet 25 MCG VAGINAL (03:49)
[2020-11-26] MEDS: clindamycin 900 MG/50 ML PREMIX 100 MG IV ×2 (05:27→13:15)
--- NOTE | 2020-11-26 08:04 | PM.OPHPUD ---
Labor & Delivery H&P Update Date of Procedure: November 26, 2020 Date H&P Performed: 11/25/20 H&P update information: I have reviewed H&P completed within last 30 days, I have examined patient prior to procedure and Changes to prior documentation as noted here (She is having occasional contractions and is somewhat uncomfortable.) Changes to previous documentation: Patient has had 3 doses of misoprostel. She is nikki irregularly and her cervix has made minimal change. The infant is still ballotable. Admission Diagnosis: Preop diagnosis: iup Primary indication for procedure: Term , Admitted for induction. Planned procedure: Plan spontaneous vaginal delivery. Probable epidural anesthesia at time.
[2020-11-26] MEDS: oxytocin 30 UNIT/500 ML BAG IV (08:21)
[2020-11-26] MEDS: alum-mag-hydroxide-sime 30 mL UDC PO ×2 (09:55→14:30)
[2020-11-26] MEDS: dextrose 5%-lactated ringers 1,000 ML 125 ML IV ×2 (11:30→18:45)
[2020-11-26] MEDS: lactated ringers 1,000 ML 999 ML IV (13:15)
[2020-11-26] MEDS: fentaNYL 50 mcg/mL INJ 2mL IVP (13:16)
--- NOTE | 2020-11-26 14:23 | ANES.PROC ---
Anesthesia Procedures Procedure/Date: 11/26/20 Epidural: Time Out Performed: Yes Consents Signed: Procedure Consent and NPO Consent Consent: from patient, risks and benefits reviewed and patient agrees to proceed Lumbar Level: L3-L4 Epidural position: sitting Epidural procedure: sterile prep of area, 1% lidocaine to numb the area, 18 g needle, neg for paresthesia, test dose given, 1.5% xylocaine 1:200k epi, placed PCEA, no systemic response, sterile dressing applied, L.U.D. no apparent complications and 0.2% Ropiavacaine @ mls/hr (13) Additional Comments: PERLA at 5.5, catheter taped at 11 at skin
--- NOTE | 2020-11-26 14:25 | P.ANESASSM_ITS ---
Pre-Anesthetic Assessment Pre-Anesthetic Assessment: Height/Weight: Height 1.63 m Weight 80.286 kg Temp Pulse Resp BP Pulse Ox 97.0 F L 83 16 122/77 99 11/26/20 03:56 11/26/20 14:22 11/26/20 13:16 11/26/20 14:22 11/26/20 14:19 Preop Diagnosis: iup Proposed Procedure: BRITNEY Was Beta Adolfo taken within 24 hours: N/A Was Clonidine taken within 24 hours: N/A Social: Social History: No alcohol and No tobacco Exam: Pre-Anes Outpt Exam: alert, oriented x 3 and regular rate & rhythm Airway: Submandibular: WNL Cervical ROM: WNL MP: 1 Dentition: Full History/ROS: No significant history except as noted Pulmonary: Pulmonary: None reported CV/HEM: CV/HEM: None reported Hepatic: Hepatic: None reported GI: GI: GERD (wel controlled) Metabolic: Metabolic: None reported Musc/skel: Musc/skel: Scoliosis Neuropsych: Neuropsych: None reported Anesthetic Plan: ASA status: 2 Anesthesia: Anesthesia Evaluation and Regional (specify below) (epidural) Risk of > 500 ml blood loss (7ml/kg in children): No Meds/Allergies Current Medications: Current Medications Generic Name Dose Route Start Last Admin Trade Name Freq PRN Reason Stop Dose Admin Al Hydrox/Mg Reseda x/Simethicone 30 ml 11/25/20 18:35 11/26/20 09:55 Yvvo-Kqi-Vyecpkr de-Koffi 30 Ml Udc PO 30 ml Q4H PRN Administration INDIGESTION Fentanyl 25 - 100 mcg 11/25/20 18:35 11/26/20 13:16 Fentanyl 50 Mcg/ Ml Inj 2ml IVP 25 mcg Q1H PRN Administration SEVERE PAIN Dextrose/Lactated Ringer's 1,000 mls @ 125 m ls/hr 11/25/20 18:35 11/26/20 13:15 Dextrose 5%-Lact ated Ringers IV 0 mls/hr .Q8H PRN Infusion per label comment s Clindamycin HCl/De xtrose 900 mg in 50 mls @ 100 mls/hr 11/25/20 21:00 11/26/20 13:15 Cleocin IV 100 mls/hr Q8H MISSAEL Administration Protocol Oxytocin 30 unit in 500 ml s @ 1 mls/hr 11/26/20 08:00 11/26/20 08:21 Pitocin IV 1 milliunit/min .Q24H MISSAEL 1 mls/hr Administration Protocol 1 MILLIUNIT/MIN Ropivacaine 200 mg in 100 mls @ 13 mls/hr 11/26/20 13:00 11/26/20 14:21 Naropin Premix EPIDURAL 13 mls/hr .Q7H42M MISSAEL Administration Lactated Ringer's 1,000 mls @ 999 m ls/hr 11/26/20 13:00 11/26/20 13:15 Lactated Ringers IV 999 mls/hr .Q1H1M PRN Administration See label comment s PFSH Anesthesia 2 PFSH: Social History (Updated 11/28/19 @ 13:24 by Augusto Auguste RN) Smoking and tobacco status: never smoked Alcohol intake: current Alcohol intake frequency: holidays/special occasions only Female Reproductive History: Date of last menstrual period: 02/21/20 : 6 Data Anesthesia CBC & Chem 7: 11/25/20 18:40 Other Labs: Laboratory Results - last 48 hr 11/25/20 18:40 WBC 9.8 RBC 4.39 Hgb 12.9 Hct 38.9 MCV 88.6 MCH 29.4 MCHC 33.2 RDW 13.2 Plt Count 250 MPV 12.1 H Neut % (Auto) 75.6 Lymph % (Auto) 17.8 Campbell % (Auto) 5.4 Eos % (Auto) 0.6 Baso % (Auto) 0.1 Neut # (Auto) 7.40 Lymph # (Auto) 1.7 Campbell # (Auto) 0.5 Eos # (Auto) 0.1 Baso # (Auto) 0.0 Nucleated RBC % (auto) 0 Nucleated RBCs # 0.0 Cardiac Studies: No Data to Display
[2020-11-26] MEDS: ondansetron 2 mg/ML SDV 2 mL 4 MG IVP (14:46)
--- NOTE | 2020-11-26 19:22 | PC.NURSE ---
Dr. Haas at bedside with ultrasound machine to confirm positioning after slight manual rotation of head. Physician confirmed with ultrasound after rotation that head positioning was OA from OP position.
[2020-11-26] MEDS: oxytocin 30 UNIT/500 ML BAG 600 UNIT IV (21:04)
--- NOTE | 2020-11-26 21:34 | PM.DELIVERY ---
Delivery Note: Date of delivery: November 26, 2020 Pre-delivery diagnoses: 25-year-old 6 at 39 weeks estimated gestational age who presented to the hospital for elective induction Post-delivery diagnoses: Status post spontaneous vaginal delivery Procedure: Spontaneous vaginal delivery Op report anesthesia: Epidural Delivering Physician: Delgado Haas Estimated blood loss (mL): 100 Pre-Delivery Course: The patient is a 6 para 4014 with an estimated gestational age of 39 weeks who was induced last night by Dr. Beth. She was placed on Cytotec x3. She was placed on Pitocin. She was GBS positive and was placed on vancomycin and had a reaction to it. She had spontaneous rupture of membranes. She progressed to complete without difficulty. Delivery: DELIVERY: The patient progressed to complete without difficulty. She delivered a female with a weight of 7 pounds 12 ounces with Apgars of 8, 9. The baby was delivered from the [place] position and placed on the mother's abdomen. The cord was then clamped and cut 1 minute after delivery. There was no nuchal cord x1 which was easily reduced at the time of delivery. There terminal meconium. The placenta and 3 vessel cord were delivered intact shortly thereafter. The perineum and vaginal vault were carefully examined. No lacerations were noted. Both the mother and the baby were in stable condition. Post-Delivery Status: Good A&P Assessment and plan (1) 39 weeks gestation of : Status: Acute (2) Spontaneous vaginal delivery: Status: Acute Coding Level of Care Code Acute Delinquency Prevention Social Worker for Chg Fwd Diagnoses 39 weeks gestation of Z3A.39 Spontaneous vaginal delivery O80
--- NOTE | 2020-11-26 22:15 | PC.NURSE ---
Verbal order from Dr. Haas for one time dose of motrin tonight.
--- NOTE | 2020-11-26 23:37 | PC.NURSE ---
Patient up to bathroom on commode at this time.
[2020-11-26] MEDS: ibuprofen 800 mg tablet PO (23:52)
[2020-11-27] VITALS (13 sets, daily range): BP systolic 108–138; BP diastolic 64–90; PULSE 66–86; RESP 17; TEMP 35.9–36.8
--- NOTE | 2020-11-27 05:00 | PC.NURSE ---
Patient denies need for pain medication at this time. RN educated patient that there are medication options for pain control and to call out to RN if pain medication desired. patient verbalized understanding.
[2020-11-27] MEDS: HYDROcodone-acetaminophen 5-325 mg Tablet PO ×3 (05:50→23:11)
[2020-11-27] MEDS: benzocaine-menthol 78 gm Canister 1 SPRAY TOPICAL (05:51)
--- NOTE | 2020-11-27 07:04 | ANE.PACU2 ---
Inpatient post-anesthesia follow up: Airway intact: Yes Vital signs: Temperature 97.2 F Pulse Rate 67 Respiratory Rate 18 Blood Pressure 138/90 Pulse Oximetry 98 Oxygen Delivery Me thod Room Air Oxygen Flow Rate Fraction of Inspir ed Oxygen Hydration adequate: Yes Nausea and vomiting: No Pain level: 1 Mental status: Baseline
--- NOTE | 2020-11-27 08:55 | P.PN_ITS ---
ACCOUNTS PAYABLE OR RECEIVABLE CLERK Subjective Subjective: Interval history: The patient is doing well. She is breast-feeding well. Her bleeding has been within normal limits. She has had some difficulty with pain control, but has been resolved with appropriate medications. Vitals/I&O/Wt Last Vital Signs Temp 97.2 F L 11/27/20 06:40 Pulse 67 11/27/20 06:41 Resp 18 11/26/20 18:35 BP 138/90 11/27/20 06:41 Pulse Ox 98 11/26/20 14:34 11/26/20 11/27/20 11/27/20 22:59 06:59 14:59 Intake Total 347.050 / 9722.448 6485.80 / 4400.000 Output Total 1163 / 1163 1200 / 2363 Balance -815.950 / 250.445 3533.80 / 2037.000 Weight last 48 hrs Weight 177 lb Physical Exam Narrative: EXAM NARRATIVE: The patient is alert. She appears comfortable. Her heart has a regular rate and rhythm with no murmurs appreciated. Lungs are clear to auscultation bilaterally. Her fundus is firm and below the umbilicus. Urinary Catheter Management^: Gandhi: Cath Placed During This Visit: yes, but has since been removed by the nurse Reason for Continuing Indwelling Catheter: Required Immobilization for Trauma or Surgery or Anesthesia Urinary Catheter Date of Insertion: 11/26/20 Urinary Catheter Time of Insertion: 15:10 Date Urinary Catheter Removed: 11/26/20 Time Urinary Catheter Discontinued: 20:56 Data : 11/25/20 18:40 A&P Assessment and plan (1) Spontaneous vaginal delivery: I anticipate routine care. Status: Acute (2) 39 weeks gestation of : Status: Acute Attestations Medical Necessity Statement*: Routine care Coding Level of Care Code Acute [employer] Machine Helper for Chg Fwd Diagnoses Spontaneous vaginal delivery O80 39 weeks gestation of Z3A.39
[2020-11-27] MEDS: lanolin oint 7 gm 1 APPLIC TOPICAL (09:09)
[2020-11-27] MEDS: docusate sodium 100 mg Capsule PO ×2 (10:36→17:09)
[2020-11-27] MEDS: prenatal vitamin Capsule 1 CAP PO (10:36)
[2020-11-27] MEDS: ibuprofen 800 mg tablet PO ×3 (10:36→21:28)
[2020-11-27 11:10] LABS: Hematocrit 37.2 % (37.0-47.0); Hemoglobin 12.2 g/dL (11.5-15.3); Mean Corpuscular HGB Conc 32.8 g/dL (30.0-36.0); Mean Corpuscular Hemoglobin 29.7 pg (28.0-34.0); Mean Corpuscular Volume 90.5 fl (81-99); Mean Platelet Volume 12.2 fL (7.4-10.4); Platelet Count 230 10^3/cmm (130-400); Red Blood Count 4.11 10^6/uL (4.1-5.3); Red Cell Distribution Width 13.3 % (12.1-15.1); White Blood Count 10.7 10^3/uL (4.0-10.0)
[2020-11-28 04:50] VITALS: BP 114/75; PULSE 72; RESP 16; O2SAT 98
[2020-11-28] MEDS: HYDROcodone-acetaminophen 5-325 mg Tablet PO ×3 (05:13→17:11)
[2020-11-28] MEDS: prenatal vitamin Capsule 1 CAP PO (08:28)
[2020-11-28] MEDS: ibuprofen 800 mg tablet PO ×2 (08:28→15:21)
[2020-11-28] MEDS: docusate sodium 100 mg Capsule PO ×2 (08:28→17:11)
--- NOTE | 2020-11-28 08:33 | PC.NURSE ---
MOM REQUESTING BABY TO GO TO NURSERY FOR A COUPLE HOURS SO SHE CAN TAKE A NAP. VITALS AND MORNING MEDS DONE EARLY. MOM REQUESTS NO ROUNDING FOR THE 0900 HOUR.
[2020-11-28 08:34] VITALS: BP 144/88; PULSE 88; RESP 16; TEMP 36.9; O2SAT 97
[2020-11-28] MEDS: alum-mag-hydroxide-sime 30 mL UDC PO (10:37)
[2020-11-28 15:22] VITALS: BP 125/83; PULSE 76; RESP 17; TEMP 37; O2SAT 98
--- NOTE | 2020-11-28 17:44 | PM.OBGYDC ---
Discharge Providers STRIP MILL OPERATOR Date of Admission: 11/25/20 17:52 Date of Discharge: 11/30/20 Attending Provider at Admission: Esutardo Beth MD Attending Provider at Discharge: Delgado Haas Primary Care Provider: Estuardo Beth MD Diagnoses at Discharge Discharge Diagnosis (1) Spontaneous vaginal delivery: Status: Resolved (2) 39 weeks gestation of : Status: Resolved Reason for Visit Reason for Visit: CONTRACTIONS Hospital Course Hospital Course The patient presented to the hospital for an elective induction at 39 weeks. She was placed on Cytotec, Pitocin, and had an amniotomy performed. An epidural was placed. She progressed to complete and had an unremarkable delivery of a healthy appearing female infant. Her course was also unremarkable. Her bleeding was within normal limits. Her pain was well controlled. She breast-fed without difficulty. Information Peripartum Data: Infant Delivery Method: Vaginal Physical Exam Narrative: EXAM NARRATIVE: The patient is alert. She appears comfortable. Her heart has a regular rate and rhythm with no murmurs appreciated. Lungs are clear to auscultation bilaterally. Her fundus is firm and below the umbilicus. Urinary Catheter Management^: Gandhi: Cath Placed During This Visit: yes, but has since been removed by the nurse Reason for Continuing Indwelling Catheter: Required Immobilization for Trauma or Surgery or Anesthesia Urinary Catheter Date of Insertion: 11/26/20 Urinary Catheter Time of Insertion: 15:10 Date Urinary Catheter Removed: 11/26/20 Time Urinary Catheter Discontinued: 20:56 Discharge Data Vitals: Last Vital Signs Temp 98.6 F 11/28/20 15:22 Pulse 76 11/28/20 15:22 Resp 17 11/28/20 15:22 BP 125/83 11/28/20 15:22 Pulse Ox 98 11/28/20 15:22 Discharge Plan Discharge Patient Disposition: Home Condition: Stable Prescriptions: New ibuprofen 800 mg Tablet 800 mg PO TID Qty: 45 RF: 0 hydrocodone-acetaminophen 5-325 mg Tablet 1 tab PO Q6H PRN (Reason: Moderate To Severe Pain) Qty: 10 RF: 0 Continued Flintstones Gummies Tablet,Chewable 1 tab PO DAILY RF: 0 Discontinued ondansetron [Zofran ODT] 4 mg Tablet,Disintegrating 4 mg PO Q6H PRN (Reason: nausea/vomiting) RF: 0 Discharge Orders: Discharge Order (Routine); Ordered 11/28/20 Ordered By: Delgado Haas Referrals: Estuardo Beth MD [Primary Care Provider] - 01/06/21 1:30 pm (Your 6 week post- appointment is scheduled for 01/06/21 @1:30 with . ) Discharge Diet: Usual diet Discharge Activity: Limit activity as instructed Patient Instructions: Depression (DC), Bleeding (DC), Preeclampsia and Eclampsia After Delivery (GEN), OB Discharge Report, OB Food/Drug Interaction Guide, Opioid Safety, OB Home Care, OB Vaginal Deliveries Discharge Attestations STRIP MILL OPERATOR Time Spent in Discharge Care*: less than 30 min Status at Discharge: Cognitive status at discharge: cognitively intact, Behavioral status at discharge: cooperative, Coding Level of Care Code Acute Rollout Manager for Chg Fwd Diagnoses Spontaneous vaginal delivery O80 39 weeks gestation of Z3A.39
[2020-11-28 18:15] VITALS: BP 142/91; PULSE 66; RESP 17; TEMP 36.8
[2020-11-28 18:46] VITALS: BP 142/91; PULSE 66; RESP 17; TEMP 36.8
== END 2020-11-28 18:35 | disposition home or self-care (01) | DRG 807 ==
PROVIDERS: Family Medicine; Admitting Provider Family Medicine; PCP Family Medicine; Visit Provider Family Medicine
DX: O99.824 Streptococcus B carrier state complicating childbirth (principal); Z37.0 Single live birth; Z3A.39 39 weeks gestation of pregnancy; O69.81X0 Labor and delivery complicated by cord around neck, without compression, not applicable or unspecified; O99.62 Diseases of the digestive system complicating childbirth; K21.9 Gastro-esophageal reflux disease without esophagitis; O77.0 Labor and delivery complicated by meconium in amniotic fluid; O75.89 Other specified complications of labor and delivery; T36.8X5A Adverse effect of other systemic antibiotics, initial encounter; L50.0 Allergic urticaria
CPT/HCPCS: 12345; 36415; 51702; 59409; 85025; 85027; 96374; 98960; J2405; J2795; J3010; J3370; J3490

== ENCOUNTER → 2020-12-06 18:56 | Outpatient (BNVA) | payer BC, MEDICAID, SELFPAY | PROVIDERS: PCP Family Medicine; Visit Provider Nurse Practitioner | DX: S69.92XA Unspecified injury of left wrist, hand and finger(s), initial encounter (principal); W19.XXXA Unspecified fall, initial encounter | CPT/HCPCS: 73110 ==